=== PATIENT | female | born 1945 | race Asian ===

== ENCOUNTER 2020-02-20 18:18 | Emergency (ER) | payer SELFPAY ==
[~2020-02-20] VITALS: Ht 152.4 cm; Wt 59.0 kg
[2020-02-20 18:18] VITALS: BP_SYST 145
--- NOTE | 2020-02-20 18:18 | NUR ---
Patient triaged and placed in waiting room. VSS and patient appears in no acute distress at this time. Accompanied by DAUGHTER, awaiting available bed, and MD notified of need for MSE.
--- NOTE | 2020-02-20 18:51 | NUR ---
BROUGHT BACK TO BED#8 AND REPORT GIVEN TO EM
--- NOTE | 2020-02-20 18:56 | NUR ---
Pt brought to ER for ARRIAZA, fever, body aches x1 day after daughter who is caregiver tested positive for COVID. Pt is resting in gurney at this time, no distress noted, VSS
--- NOTE | 2020-02-20 19:11 | NUR ---
Received report from OTONIEL Russo.
--- NOTE | 2020-02-20 19:47 | NUR ---
ER at bedside examining patient.
[2020-02-20] MEDS ORDERED: ACETAMINOPHEN 500 MG TABLET PO ONE (20:00)
[2020-02-20] MEDS ORDERED: ONDANSETRON HCL 4 MG/2 ML VIAL IVP ONE (20:00)
[2020-02-20] MEDS ORDERED: NACL 0.9% 1,000 ML IV ONE (20:00)
[2020-02-20] MEDS ORDERED: KETOROLAC TROMETHAMINE 30 MG VIAL IVP ONE (20:00)
--- NOTE | 2020-02-20 20:08 | NUR ---
X-ray at bedside,
--- NOTE | 2020-02-20 20:25 | NUR ---
Covid-19 Rapid, PCR and Flu swabs and send to lab.
--- NOTE | 2020-02-20 20:30 | NUR ---
# 20 gauge angiocath placed to RAC. Use of asceptic technique. Opsite placed over site. Blood return noted. Blood for lab drawn from site. Flushed with 10 cc of normal saline. No evidence of infiltration noted. Patient tolerated well.
[2020-02-20 20:56] LABS: ANION GAP 10 (5-15); CALCIUM 8.5 mg/dL (8.4-11.0); CHLORIDE 96 mmol/L (98-107); CREATININE 0.59 mg/dL (0.55-1.30); GLUCOSE 128 mg/dL (70-99); POTASSIUM 3.5 mmol/L (3.5-5.1); SODIUM SERUM 130 mmol/L (136-145); UREA NITROGEN, BLOOD 14 mg/dL (8-21)
[2020-02-20 21:03] LABS: ALANINE AMINOTRANSFERASE 29 U/L (12-78); ALBUMIN 4.1 g/dL (3.4-4.8); ASPARTATE AMINOTRANSFERASE 22 U/L (10-37); BASOPHILS % (AUTO) 0.5 % (0.0-2.0); EOSINOPHILS % (AUTO) 0.1 % (0.0-4.0); HEMATOCRIT 42.7 % (36-48); HEMOGLOBIN 14.5 g/dL (12.0-16.0); LYMPHOCYTES # (AUTO) 0.4 K/uL (1.0-5.5); LYMPHOCYTES % (AUTO) 5.1 % (20.5-51.5); MEAN CORPUSCULAR HEMOGLOBIN 31 pg (27-31); MEAN CORPUSCULAR HGB CONC 34 % (32-36); MEAN CORPUSCULAR VOLUME 92 fL (79.0-98.0); MONOCYTES # (AUTO) 0.5 K/uL (0.0-1.0); MONOCYTES % (AUTO) 7.2 % (1.7-9.3); NEUTROPHILS # (AUTO) 6.3 K/uL (1.8-7.7); NEUTROPHILS % (AUTO) 87.1 % (40.0-70.0); PLATELET COUNT (AUTO) 179 K/uL (130-430); RED BLOOD CELL COUNT(AUTO) 4.65 MIL/uL (4.2-6.2); RED CELL DISTRIBUTION WIDTH 13.3 % (9.0-15.0); TOTAL BILIRUBIN 0.6 mg/dL (0.0-1.0); WHITE BLOOD COUNT (AUTO) 7.2 K/uL (4.8-10.8)
[2020-02-20 22:26] LABS: INFLUENZA A&B ANTIGEN SCREEN NEGATIVE FOR A & B (NEGATIVE)
[2020-02-20 22:51] VITALS: BP_SYST 118
--- NOTE | 2020-02-20 22:51 | NUR ---
Patient's family given written and verbal discharge instructions and verbalizes understanding. ER MD discussed with patient the results and treatment provided. Patient in stable condition. ID arm band removed. IV catheter removed intact and dressing applied, no active bleeding. Rx of Azithromycin given. Patient's family educated on pain management and to follow up with PMD. Pain Scale 1/10. Opportunity for questions provided and answered. Medication side effect fact sheet provided.
== END 2020-02-20 22:51 | disposition home or self-care (01) ==
LOC: SED 18:18
DX: R05 Cough (principal)
CPT/HCPCS: 36415; 71045; 80053; 85025; 86710; 87426; 96361; 96374; 96375; 99284; C9803; J1885; J2405; J7030; U0003

== ENCOUNTER 2020-02-25 11:36 | Inpatient (IN) | payer SELFPAY ==
[~2020-02-25] VITALS: Ht 152.4 cm; Wt 71.2 kg
[2020-02-25 11:41] VITALS: BP_SYST 118
--- NOTE | 2020-02-25 11:41 | NUR ---
Patient to ER bed 06 to gown for evaluation. Side rails up. Report given to OTONIEL STRICKLAND.
--- NOTE | 2020-02-25 11:50 | NUR ---
Pt brought to ER for COVID symptoms, pt daughter tested positive but pt tested negative 5 days ago. Chief complaint SOB and ARRIAZA, O2 sat WNL on RA, pt appears comfortable, VSS.
--- NOTE | 2020-02-25 11:55 | NUR ---
ER at bedside examining patient.
[2020-02-25 12:24] LABS: HEMATOCRIT 35.6 % (36-48); HEMOGLOBIN 12.5 g/dL (12.0-16.0); LYMPHOCYTES # (AUTO) 0.9 K/uL (1.0-5.5); LYMPHOCYTES % (AUTO) 23.8 % (20.5-51.5); MEAN CORPUSCULAR HEMOGLOBIN 32 pg (27-31); MEAN CORPUSCULAR HGB CONC 35 % (32-36); MEAN CORPUSCULAR VOLUME 91 fL (79.0-98.0); MONOCYTES # (AUTO) 0.4 K/uL (0.0-1.0); NEUTROPHILS # (AUTO) 2.5 K/uL (1.8-7.7); NEUTROPHILS % (AUTO) 65.2 % (40.0-70.0); PLATELET COUNT (AUTO) 168 K/uL (130-430); RED BLOOD CELL COUNT(AUTO) 3.92 MIL/uL (4.2-6.2); RED CELL DISTRIBUTION WIDTH 13.3 % (9.0-15.0); WHITE BLOOD COUNT (AUTO) 3.9 K/uL (4.8-10.8)
--- NOTE | 2020-02-25 12:33 | NUR ---
daughter left phone number [phone]
[2020-02-25 12:49] LABS: ANION GAP 9 (5-15); CALCIUM 7.6 mg/dL (8.4-11.0); CHLORIDE 100 mmol/L (98-107); CREATININE 0.59 mg/dL (0.55-1.30); GLUCOSE 116 mg/dL (70-99); SODIUM SERUM 134 mmol/L (136-145); UREA NITROGEN, BLOOD 15 mg/dL (8-21)
[2020-02-25 12:54] LABS: ALANINE AMINOTRANSFERASE 32 U/L (12-78); ALBUMIN 3.1 g/dL (3.4-4.8); ASPARTATE AMINOTRANSFERASE 28 U/L (10-37); LACTATE DEHYDROGENASE 156 U/L (81-234); TOTAL BILIRUBIN 0.3 mg/dL (0.0-1.0)
[2020-02-25 12:56] LABS: POTASSIUM 2.9 mmol/L (3.5-5.1)
[2020-02-25 13:09] LABS: PROTHROMBIN TIME 9.9 SECS (9.5-12.5)
[2020-02-25] MEDS ORDERED: POTASSIUM CHLORIDE 20 MEQ TAB.PRT.SR PO ONE (13:45)
[2020-02-25] MEDS ORDERED: IOHEXOL 350 mgI/mL, 150 ML INFUS..BTL IV ONE (14:31)
--- NOTE | 2020-02-25 14:38 | NUR ---
Pt resting in [place], VSS, no distress noted
[2020-02-25 15:21] LABS: BILIRUBIN,URINE NEGATIVE (NEGATIVE); CLARITY/URINE CLEAR (CLEAR); COLOR,URINE YELLOW (YELLOW); GLUCOSE,URINE NEGATIVE (NEGATIVE); KETONES,URINE NEGATIVE (NEGATIVE); LEUKOCYTE ESTERASE ,URINE NEGATIVE (NEGATIVE); NITRITE, URINE NEGATIVE (NEGATIVE); PROTEIN URINE NEGATIVE (NEGATIVE); UROBILINOGEN,URINE 0.2 (0.2-1.0)
[2020-02-25 15:39] LABS: BLOOD, URINE TRACE (NEGATIVE)
[2020-02-25] MEDS ORDERED: cefTRIAXone 1 GM IVPB PREMIX 50 ML IV ONE (15:45)
[2020-02-25 15:56] LABS: BACTERIA,URINE None Seen /HPF (None Seen); CALCIUM OXALATE CRYSTALS,UR None Seen /HPF (None Seen); CALCIUM PHOSPHATE CRYSTALS,UR None Seen /HPF (None Seen); RBC,URINE 0-3 /HPF (0-3); TRICHOMONAS,URINE None Seen /HPF (None Seen); URIC ACID CRYSTALS,URINE None Seen /HPF (None Seen); WBC,URINE NONE SEEN /HPF (0-3); YEAST,URINE None Seen /HPF (None Seen)
--- NOTE | 2020-02-25 17:33 | NUR ---
Pt asleep in [facility] at this time vss
[2020-02-25] MEDS ORDERED: LEVOFLOXACIN 500 MG/D5W 100 ML IV ONE (17:45)
--- NOTE | 2020-02-25 19:04 | NUR ---
ADMISSION NOTE Received patient from ER via gurney. Patient admitted with diagnosis of PNEUMONIA. Patient is awake, alert, oriented X 4. Patient oriented to hospital room, call light, toileting, pain management and safety-teach back done. Patient informed that TYLER will be nurse and that their room number is 123B. Personal belongings checked and Belongings List documented. Call light within reach.
--- NOTE | 2020-02-25 19:10 | NUR ---
Patient will be admitted to care of [facility]. Admitted to Tele unit. Will go to room 123B. Belongings list completed. Complete and up to date summary report printed. SBAR report to be given at bedside with opportunity for questions.
[2020-02-25 19:14] VITALS: BP_SYST 145
[2020-02-25] MEDS ORDERED: ALBUTEROL SULFATE 0.083% 2.5 MG/3 ML VIAL.NEB INH PRN (19:45)
[2020-02-25] MEDS ORDERED: IPRATROPIUM BROM 0.5 MG/2.5 ML VIAL.NEB (ATROVENT) INH PRN (19:45)
[2020-02-25 20:00] VITALS: BP_SYST 145
[2020-02-25] MEDS ORDERED: FLU VACC QS2020-21(65UP)/PF 0.7 ML/SYRINGE I.M. PRN (20:15)
[2020-02-25 20:54] VITALS: BP_SYST 145
--- NOTE | 2020-02-25 21:20 | NUR ---
RN NOTE: PT RESTING IN BED, NO S/S OF ACUTE DISTRESS, BREATHING IS EVEN AND UNLABORED TO ROOM AIR, OXYGEN SATURATION IS 93% ON THE TELE MONITOR. SAFETY MAINTAINED. WILL MONITOR.
[2020-02-26] MEDS ORDERED: HYDROcodone/ACETAMIN 10-325 MG TAB PO PRN
[2020-02-26] MEDS ORDERED: HYDROcodone/ACETAMIN 5-325 MG TAB (NORCO/ VICODIN) PO PRN
[2020-02-26] MEDS ORDERED: LORazepam 2 MG/ML VIAL IVP PRN
[2020-02-26] MEDS ORDERED: NALOXONE HCL 0.4 MG/ML AMP (NARCAN) IVP PRN ×2
[2020-02-26] MEDS ORDERED: ONDANSETRON HCL 4 MG/2 ML VIAL IVP PRN
[2020-02-26 00:11] VITALS: BP_SYST 128
--- NOTE | 2020-02-26 00:18 | NUR ---
VITALS VITAL SIGNS WNL. NO S/S OF ACUTE DISTRESS. PT GIVEN WARM WATER. SAFETY MAINTAINED. WILL MONITOR.
[2020-02-26] MEDS: ALBUTEROL SULFATE 0.083% 2.5 MG/3 ML VIAL.NEB INH SCH ×3 (01:00→19:52)
[2020-02-26] MEDS: IPRATROPIUM BROM 0.5 MG/2.5 ML VIAL.NEB (ATROVENT) INH SCH ×3 (01:00→19:51)
--- NOTE | 2020-02-26 02:12 | NUR ---
RN NOTE: PT RESTING IN BED, NO S/S OF ACUTE DISTRESS, BREATHING IS EVEN AND UNLABORED TO ROOM AIR, OXYGEN SATURATION IS 91% ON THE TELE MONITOR. SAFETY MAINTAINED. WILL MONITOR.
[2020-02-26] MEDS: NORMAL SALINE 5 ML DISP.SYRIN IVF SCH ×3 (05:09→20:30)
--- NOTE | 2020-02-26 05:29 | NUR ---
COVID PCR TAKEN AND SENT TO LAB. PT TOLERATED WELL.
--- NOTE | 2020-02-26 06:22 | NUR ---
CLOSING NOTE PATIENT RESTING IN BED, NO S/S OF ACUTE DISTRESS NOTED. BREATHING EVEN AND UNLABORED TO ROOM AIR, SATTING 93% ON THE TELE MONITOR. IV SITE IS PATENT, NO SIGNS OF INFILTRATION OR INFECTION NOTED. SKIN WARM AND DRY TO TOUCH. NO ALL NEEDS MET THROUGHOUT SHIFT. FALL, SAFETY, AND ISOLATION PRECAUTIONS MAINTAINED THROUGHOUT SHIFT. WILL CONTINUE TO MONITOR UNTIL PATIENT CARE IS ENDORSED TO ONCOMING DAYSHIFT NURSE.
[2020-02-26 08:00] VITALS: BP_SYST 158
--- NOTE | 2020-02-26 08:00 | NUR ---
initial notes rec patient awake alert and eating breakfast ivl on the l wrist in place. no infiltration noted.ambulates in the room and smita well. resp easy and unlabored. no sob noted. bed to the lowest position. call light within reached. will continue to monitor patient.
[2020-02-26] MEDS: cefTRIAXone 1 GM in D5W 50 ML IV SCH (09:00)
[2020-02-26] MEDS: AZITHROMYCIN 500 MG in NS 250 ML IV SCH (09:49)
--- NOTE | 2020-02-26 10:00 | NUR ---
rounds due meds were given and smita well. resting comfortably.
[2020-02-26 12:00] VITALS: BP_SYST 145
--- NOTE | 2020-02-26 12:18 | NUR ---
CONSULTATION: REASON FOR CONSULT: RULE OUT COVID CONSULTING PHYSICIAN: LEEANN RENNER ORDERED BY: DANILO SPOKE WITH HANSEL [phone]
--- NOTE | 2020-02-26 14:00 | NUR ---
rounds seen by dr arzate. denies pain. sleeps at intervals. call light within reached. no sob noted.
[2020-02-26] MEDS ORDERED: ASCORBIC ACID 500 MG TABLET PO ONE (14:30)
[2020-02-26] MEDS ORDERED: CHOLECALCIFEROL (VITAMIN D3) 2,000 UNIT TABLET PO ONE (14:30)
[2020-02-26 16:00] VITALS: BP_SYST 141
--- NOTE | 2020-02-26 19:00 | NUR ---
closing notes pt resting comfortably. no sob noted. call light within reached. bed to the lowest position and side rails up and locked.
--- NOTE | 2020-02-26 19:30 | NUR ---
OPENING NOTES RECEIVED REPORT FROM DAY SHIFT RN. PT RESTING IN BED, ALERT & ORIENTED X4. BREATHING EVEN AND UNLABORED TO ROOM AIR. NO S/S OF RESPIRATORY DISTRESS NOTED. LEFT WRIST 20G INTACT, NO SIGNS OF INFILTRATION NOTED. CALL LIGHT WITHIN REACH. BED LOCKED IN LOWEST POSITION. SIDE RAILS UP X3. SAFETY AND ISOLATION PRECAUTIONS MAINTAINED. WILL CONTINUE TO MONITOR.
[2020-02-26 20:08] VITALS: BP_SYST 122
[2020-02-26] MEDS: ACETAMINOPHEN 325 MG TABLET PO PRN (20:08)
--- NOTE | 2020-02-26 20:08 | NUR ---
FEVER 100.5 TEMPERATURE NOTED. ADMINISTERED TYLENOL ORDERED PRN. PT SWALLOWED MEDICATIONS WITHOUT ANY DIFFICULTY. WILL RECHECK THE TEMPERATURE AGAIN.
--- NOTE | 2020-02-26 21:25 | NUR ---
TEMPERATURE RECHECKED TEMPERATURE, 99.2 NOTED AT THIS TIME. PT THOM ANY PAIN. BREATHING EVEN AND UNLABORED TO ROOM AIR. NO SIGNS OF RESPIRATORY DISTRESS NOTED. PT WALKED TO THE BATHROOM, STEADY GAIT NOTED. PT BACK TO BED SAFELY. CALL LIGHT WITHIN REACH. SIDE RAILS UP X3. BED LOCKED IN LOWEST POSITION. SAFETY AND ISOLATION PRECAUTIONS ARE IN PLACE. WILL CONTINUE TO MONITOR.
--- NOTE | 2020-02-26 23:55 | NUR ---
RN ROUNDS PT RESTING IN BED, BREATHING EVEN AND UNLABORED TO ROOM AIR. NO SIGNS OF RESPIRATORY DISTRESS NOTED. O2 SAT 93%. CALL LIGHT WITHIN REACH. BED LOCKED IN LOWEST POSITION. SAFETY AND ISOLATION PRECAUTIONS MAINTAINED. WILL MONITOR.
[2020-02-27] VITALS: BP_SYST 113
[2020-02-27] MEDS: ALBUTEROL SULFATE 0.083% 2.5 MG/3 ML VIAL.NEB INH SCH ×3 (01:01→13:25)
[2020-02-27] MEDS: IPRATROPIUM BROM 0.5 MG/2.5 ML VIAL.NEB (ATROVENT) INH SCH ×3 (01:01→13:25)
--- NOTE | 2020-02-27 03:15 | NUR ---
RN ROUNDS PT SLEEPING. BREATHING EVEN AND UNLABORED TO ROOM AIR. PT THOM ANY PAIN AT THIS TIME. CALL LIGHT WITHIN REACH. BED LOCKED IN LOWEST POSITION. SIDE RAILS UP X3. SAFETY PRECAUTIONS MAINTAINED. WILL CONTINUE TO MONITOR.
[2020-02-27] MEDS: NORMAL SALINE 5 ML DISP.SYRIN IVF SCH ×2 (05:30→13:26)
--- NOTE | 2020-02-27 06:54 | NUR ---
CLOSING NOTES PT RESTING IN BED. BREATHING EVEN AND UNLABORED TO ROOM AIR. NO S/S OF RESPIRATORY DISTRESS NOTED. LEFT WRIST 20G INTACT, NO SIGNS OF INFILTRATION NOTED. CALL LIGHT WITHIN REACH. BED LOCKED IN LOWEST POSITION. SIDE RAILS UP X3. SAFETY AND ISOLATION PRECAUTIONS MAINTAINED. ALL NEEDS ARE MET THROUGHOUT SHIFT RN. WILL CONTINUE TO MONITOR UNTIL ENDORSE TO DAY SHIFT RN.
--- NOTE | 2020-02-27 07:30 | NUR ---
OPENING NOTES: RECEIVED PATIENT FROM STATISTICS TUTOR NURSE. PATIENT IS AWAKE AND ALERT x4 LAYING DOWN IN BED. PATIENT DENIES ANY PAIN AT THE MOMENT. IV SITE IS PATENT WITH NO SIGNS OF INFILTRATION NOTED. PATIENT IN STABLE CONDITION. SAFETY, FALL, ASPIRATION, CONTACT AND DROPLET PRECAUTIONS ARE IN PLACE. BED LOCKED IN LOWEST POSITION WITH CALL LIGHT IN REACH. WILL CONTINUE TO MONITOR PATIENT FOR ANY CHANGES.
[2020-02-27 07:31] LABS: BASOPHILS % (AUTO) 0.6 % (0.0-2.0); EOSINOPHILS % (AUTO) 0.1 % (0.0-4.0); HEMATOCRIT 39.6 % (36-48); HEMOGLOBIN 13.6 g/dL (12.0-16.0); LYMPHOCYTES # (AUTO) 0.7 K/uL (1.0-5.5); LYMPHOCYTES % (AUTO) 18.7 % (20.5-51.5); MEAN CORPUSCULAR HEMOGLOBIN 31 pg (27-31); MEAN CORPUSCULAR HGB CONC 35 % (32-36); MEAN CORPUSCULAR VOLUME 90 fL (79.0-98.0); MONOCYTES # (AUTO) 0.2 K/uL (0.0-1.0); MONOCYTES % (AUTO) 6.9 % (1.7-9.3); NEUTROPHILS # (AUTO) 2.7 K/uL (1.8-7.7); NEUTROPHILS % (AUTO) 73.7 % (40.0-70.0); PLATELET COUNT (AUTO) 173 K/uL (130-430); RED CELL DISTRIBUTION WIDTH 13.2 % (9.0-15.0); WHITE BLOOD COUNT (AUTO) 3.6 K/uL (4.8-10.8)
[2020-02-27 07:53] LABS: ANION GAP 11 (5-15); CALCIUM 7.9 mg/dL (8.4-11.0); CHLORIDE 99 mmol/L (98-107); CREATININE 0.53 mg/dL (0.55-1.30); GLUCOSE 101 mg/dL (70-99); SODIUM SERUM 136 mmol/L (136-145); UREA NITROGEN, BLOOD 9 mg/dL (8-21)
[2020-02-27] MEDS: ASCORBIC ACID 500 MG TABLET PO SCH (08:40)
[2020-02-27] MEDS: CHOLECALCIFEROL (VITAMIN D3) 2,000 UNIT TABLET PO SCH (08:40)
[2020-02-27] MEDS: cefTRIAXone 1 GM in D5W 50 ML IV SCH (08:40)
--- NOTE | 2020-02-27 08:40 | NUR ---
SCD's: PATIENT REFUSED TO LET ME PUT ON SCD's. WILL TRY AGAIN AT A LATER TIME.
[2020-02-27 08:41] VITALS: BP_SYST 121
[2020-02-27 08:41] LABS: C-REACTIVE PROTEIN QUANT 1.7 mg/dL (0-0.5)
--- NOTE | 2020-02-27 08:42 | NUR ---
MEDS: MORNING MEDICATIONS GIVEN TO PATIENT. PATIENT TOLERATED THEM WELL. WILL CONTINUE TO MONITOR PATIENT.
[2020-02-27] MEDS: AZITHROMYCIN 500 MG in NS 250 ML IV SCH (09:20)
--- NOTE | 2020-02-27 09:45 | NUR ---
IV: PATIENT COMPLAINED OF LEFT WRIST IV SITE BURNING. IV SITE REMOVED WITH CATHETER INTACT AND NO ACTIVE BLEEDING. NEW IV SITE INSERTED INTO THE RIGHT HAND 22G. ASEPTIC TECHNIQUE USED. SUCCESSFUL AFTER ONE ATTEMPT. IV SITE FLUSHED WITH NORMAL SALINE AND NO SIGNS OF INFILTRATION NOTED. PATIENT TOLERATED IT WELL. WILL CONTINUE TO MONITOR.
--- NOTE | 2020-02-27 10:03 | NUR ---
RN ROUNDS: PATIENT IS AWAKE AND ALERT x4 LAYING DOWN IN BED. PATIENT IS TOLERATING OXYGEN ON ROOM AIR WITH NO SIGNS OF DISTRESS OR SHORTNESS OF BREATH NOTED. IV SITE IS PATENT WITH NO SIGNS OF INFILTRATION NOTED. PATIENT IN STABLE CONDITION. WILL CONTINUE TO MONITOR PATIENT FOR ANY CHANGES.
--- NOTE | 2020-02-27 10:34 | NUR ---
FAMILY: DAUGHTER KUSHAL CALLED TO GET AN UPDATE ON HER MOTHER. I INFORMED HER HOW SHE IS DOING AND THAT WE WILL LET HER KNOW WHEN HER MOTHER WILL BE READY FOR DISCHARGE. UNSURE IF KUSHAL UNDERSTOOD ME. SHE DID NOT RESPOND TO ME. CALLED BACK A SECOND TIME TO TRY AND MAKE SURE SHE UNDERSTOOD AND ALL SHE KEPT SAYING WAS "HELLO". WILL TRY TO COMMUNICATE WITH HER AGAIN.
--- NOTE | 2020-02-27 11:18 | NUR ---
PAGED PAGED ABRAHAM SOLARES AT [phone] SPOKE WITH KENIA.
[2020-02-27] MEDS: ACETAMINOPHEN 325 MG TABLET PO PRN (12:12)
--- NOTE | 2020-02-27 12:12 | NUR ---
FEVER: PATIENT HAS A TEMPERATURE OF 99.9. TYLENOL GIVEN TO PATIENT. PATIENT SWALLOWED WITH NO ISSUES. WILL REASSESS PATIENT.
[2020-02-27 12:18] VITALS: BP_SYST 135
--- NOTE | 2020-02-27 12:23 | NUR ---
RN ROUNDS: PATIENT IS AWAKE AND ALERT x4 LAYING DOWN IN BED. PATIENT IS TOLERATING OXYGEN ON ROOM AIR WITH NO SIGNS OF DISTRESS OR SHORTNESS OF BREATH NOTED. IV SITE IS PATENT WITH NO SIGNS OF INFILTRATION NOTED. LUNCH TRAY PROVIDED TO PATIENT. PATIENT GOT UP TO THE SIDE OF THE BED TO EAT. PATIENT IN STABLE CONDITION. WILL CONTINUE TO MONITOR PATIENT FOR ANY CHANGES.
[2020-02-27] MEDS ORDERED: POTASSIUM CHLORIDE 20 MEQ TAB.PRT.SR PO ONE (13:15)
--- NOTE | 2020-02-27 13:15 | NUR ---
HIGH ALERT NOTE: Called Dr. Barton back at [phone] identified within the medical roster to verify physician authenticity.
--- NOTE | 2020-02-27 14:06 | NUR ---
RN ROUNDS: PATIENT IS ASLEEP LAYING DOWN IN BED. PATIENT IS TOLERATING OXYGEN ON ROOM AIR WITH NO SIGNS OF DISTRESS OR SHORTNESS OF BREATH NOTED. IV SITE IS PATENT WITH NO SIGNS OF INFILTRATION NOTED. PATIENT IN STABLE CONDITION. WILL CONTINUE TO MONITOR PATIENT FOR ANY CHANGES.
[2020-02-27 16:10] VITALS: BP_SYST 137
--- NOTE | 2020-02-27 16:36 | NUR ---
RN ROUNDS: PATIENT IS AWAKE AND ALERT x4 LAYING DOWN IN BED TALKING ON THE PHONE. PATIENT IS TOLERATING OXYGEN ON ROOM AIR WITH NO SIGNS OF DISTRESS OR SHORTNESS OF BREATH NOTED. IV SITE IS PATENT WITH NO SIGNS OF INFILTRATION NOTED. PATIENT IN STABLE CONDITION. WILL CONTINUE TO MONITOR PATIENT FOR ANY CHANGES.
--- NOTE | 2020-02-27 17:22 | NUR ---
PAGED PAGED LEEANN PATEL AT [phone] SPOKE WITH HUSSAIN.
--- NOTE | 2020-02-27 18:37 | NUR ---
CLOSING NOTES: PATIENT IS AWAKE AND ALERT x4 LAYING DOWN IN BED ON HER PHONE. PATIENT DENIES ANY PAIN AT THE MOMENT. IV SITE IS PATENT WITH NO SIGNS OF INFILTRATION NOTED. PATIENT IN STABLE CONDITION. SAFETY, FALL, ASPIRATION, CONTACT AND DROPLET PRECAUTIONS REMAINED IN PLACE THROUGHOUT THE SHIFT. BED LOCKED IN LOWEST POSITION WITH CALL LIGHT IN REACH. WILL ENDORSE PATIENT CARE TO ONCOMING MIDDLEWARE ADMINISTRATOR NURSE.
[2020-02-28] MEDS: NORMAL SALINE 5 ML DISP.SYRIN IVF SCH ×4 (06:00→21:34)
[2020-02-28] MEDS: ALBUTEROL SULFATE 0.083% 2.5 MG/3 ML VIAL.NEB INH SCH (07:18)
[2020-02-28] MEDS: IPRATROPIUM BROM 0.5 MG/2.5 ML VIAL.NEB (ATROVENT) INH SCH (07:18)
[2020-02-28 08:00] VITALS: BP_SYST 126
--- NOTE | 2020-02-28 08:00 | NUR ---
Initial notes awake, oriented. speaks mandarin, patient's uses translation on her phone to communicate. temp is 99.1, denies any pain or discomfort at this time. No distress noted, On room air, but patient O2 sat is at 88-89% at this time. Nasal cannula at 2L applied at this time. ambulate with steady gait. Enc. to call for help as needed. Call light in reach.Will continue to monitor.
[2020-02-28] MEDS: ASCORBIC ACID 500 MG TABLET PO SCH (08:09)
[2020-02-28] MEDS: cefTRIAXone 1 GM in D5W 50 ML IV SCH (08:09)
[2020-02-28] MEDS: CHOLECALCIFEROL (VITAMIN D3) 2,000 UNIT TABLET PO SCH (08:09)
[2020-02-28] MEDS: AZITHROMYCIN 500 MG in NS 250 ML IV SCH (09:26)
--- NOTE | 2020-02-28 11:00 | NUR ---
Notes Resting in bed, no distress noted. Enc to call for help as needed. Will monitor.
[2020-02-28 12:00] VITALS: BP_SYST 120
[2020-02-28] MEDS: DECADRON 4 MG TABLET PO SCH (13:10)
--- NOTE | 2020-02-28 15:22 | NUR ---
Notes Resting with eyes closed. No distress noted. On O2 2L tolerating well. Will monitor.
[2020-02-28 16:37] VITALS: BP_SYST 115
--- NOTE | 2020-02-28 18:19 | NUR ---
Notes- Ambulating in the room, o2 sat on the monitor is 92%. Denies any chest pain or discomfort. will monitor.
[2020-02-28] MEDS: ALBUTEROL MDI INHALATION 8 GM INH INH SCH (19:00)
--- NOTE | 2020-02-28 19:35 | NUR ---
ROUNDS PATIENT RESTING COMFORTABLY IN BED, NOT IN DISTRESS, VITALS STABLE. NO PAIN AND DISCOMFORT AT THIS TIME. ASSESSMENT DONE AND DOCUMENTED. SEE FLOWSHEET. NEEDS ATTENDED TO. SAFETY AND FALL MEASURES IN PLACED. BED IN LOW AND LOCKED POSITION. CALL LIGHT PLACED WITHIN REACH.
[2020-02-28 20:00] VITALS: BP_SYST 118
--- NOTE | 2020-02-28 22:13 | NUR ---
ROUNDS PATIENT RESTING COMFORTABLY IN BED, NO SIGNS OF ANY PAIN AND DISCOMFORT NOTED, WILL CONTINUE TO MONITOR.
[2020-02-29] VITALS: BP_SYST 120
--- NOTE | 2020-02-29 00:12 | NUR ---
PATIENT RESTING: Patient resting quietly. No acute distress noted. Vital signs within normal range.
[2020-02-29] MEDS: ALBUTEROL MDI INHALATION 8 GM INH INH SCH ×4 (01:13→18:00)
--- NOTE | 2020-02-29 02:13 | NUR ---
ROUNDS PATIENT ASLEEP, RESPIRATIONS EVEN AND UNLABORED, NO PAIN AND DISCOMFORT NOTED. WILL CONTINUE TO MONITOR.
--- NOTE | 2020-02-29 04:17 | NUR ---
PATIENT RESTING: Patient resting quietly. No acute distress noted. Vital signs within normal range.
[2020-02-29 08:00] VITALS: BP_SYST 127
[2020-02-29] MEDS: cefTRIAXone 1 GM in D5W 50 ML IV SCH (09:08)
[2020-02-29] MEDS: CHOLECALCIFEROL (VITAMIN D3) 2,000 UNIT TABLET PO SCH (09:08)
[2020-02-29] MEDS: ASCORBIC ACID 500 MG TABLET PO SCH (09:08)
--- NOTE | 2020-02-29 09:10 | NUR ---
Notes Awake, Afebrile, on room air o2 sat at 92%. ambulates, no acute distress noted. Eat all her breakfast.
[2020-02-29] MEDS: AZITHROMYCIN 500 MG in NS 250 ML IV SCH (10:33)
[2020-02-29 12:00] VITALS: BP_SYST 115
--- NOTE | 2020-02-29 12:18 | NUR ---
CONSULTATION PAGED/CALLED Reason for Consultation: [] COVID Person Who was Notified: [] PAGED PULMO SWIFT TENDER DIRECTLY (DR CLEARY) Consulting Physician: [] DR CLEARY Aluminum Boat Inspector Specialty: [] PULMO Ordering Physician: [] DR CARRASCO
--- NOTE | 2020-02-29 12:41 | NUR ---
SS notes: FIRE PRODUCTION OPERATOR phoned selenar Simranjacky Figueroa @ [phone] to offer resources. FIRE PRODUCTION OPERATOR provided family with community clinic and Rx discount card. FIRE PRODUCTION OPERATOR encouraged family to call SS if additional resources needed. Resources mailed to: [address], [place] [address] address. SS will remain available.
[2020-02-29] MEDS: DECADRON 4 MG TABLET PO SCH (13:00)
--- NOTE | 2020-02-29 14:30 | NUR ---
Notes resting , on room air, tolerating so far. no distress noted.
[2020-02-29 16:00] VITALS: BP_SYST 112
--- NOTE | 2020-02-29 18:17 | NUR ---
Notes- Eating dinner, in no distress , On room air tolerating well. Denies any shortness of breath or chest pain.
--- NOTE | 2020-02-29 18:18 | NUR ---
MD Rounds Seen by Dr. Zora MD cleared patient to go home.
--- NOTE | 2020-02-29 19:30 | NUR ---
Initial notes: Received report from dayshift RN. Patient is in bed, resting. No acute distress. Even, nonlabored breathing on room air. IV site is patent, intact, and saline locked. Bed is locked at lowest position. Side rails up x2. Call light is with patient. Covid, safety, and fall precautions in place. Will continue with plan of care.
[2020-02-29 20:00] VITALS: BP_SYST 126
[2020-02-29] MEDS: NORMAL SALINE 5 ML DISP.SYRIN IVF SCH ×2 (21:30→22:02)
--- NOTE | 2020-02-29 21:30 | NUR ---
Rounds: Patient is resting in bed. No s/s of acute distress. Breathing is even, nonlabored on room air. Call light is with patient. Covid, safety, and fall precautions in place. Will continue monitoring.
--- NOTE | 2020-02-29 23:30 | NUR ---
Rounds: Patient is in bed, sleeping. No s/s of acute distress. Respirations are even and nonlabored. Call light is with patient. Covid, safety, and fall precautions in place. Will continue monitoring.
[2020-03-01] VITALS: BP_SYST 116
--- NOTE | 2020-03-01 01:33 | NUR ---
Rounds: Patient is sleeping in bed. Showing no signs of acute distress. Even and unlabored breathing. Call light is with patient. Covid, safety, and fall precautions in place. Will continue to monitor.
--- NOTE | 2020-03-01 04:00 | NUR ---
Rounds: Patient is sleeping in bed. No signs of acute distress. Breathing is even and unlabored. Call light is with patient. Safety and fall precautions in place. Will continue monitoring.
[2020-03-01] MEDS: NORMAL SALINE 5 ML DISP.SYRIN IVF SCH ×3 (05:45→21:01)
--- NOTE | 2020-03-01 06:48 | NUR ---
Closing notes: Patient is in bed, resting. No acute distress. Even, nonlabored breathing on room air. IV site is patent, intact, and saline locked. All needs met. Bed is locked at lowest position. Side rails up x2. Call light is with patient. Covid, safety, and fall precautions in place. Will endorse care to dayshift RN.
[2020-03-01] MEDS: ALBUTEROL MDI INHALATION 8 GM INH INH SCH ×4 (07:35→19:50)
[2020-03-01 08:20] VITALS: BP_SYST 123
[2020-03-01] MEDS: cefTRIAXone 1 GM in D5W 50 ML IV SCH (09:01)
[2020-03-01] MEDS: CHOLECALCIFEROL (VITAMIN D3) 2,000 UNIT TABLET PO SCH (09:01)
[2020-03-01] MEDS: ASCORBIC ACID 500 MG TABLET PO SCH (09:01)
--- NOTE | 2020-03-01 09:45 | NUR ---
DR CARRASCO WAS HERE, INFORMED MD THAT PT IS DOING FINE THOUGH HER O2 SAT IS AT 92% ON ROOM AIR.
[2020-03-01] MEDS: AZITHROMYCIN 500 MG in NS 250 ML IV SCH (10:00)
[2020-03-01 12:48] VITALS: BP_SYST 131
[2020-03-01] MEDS: DECADRON 4 MG TABLET PO SCH (12:53)
--- NOTE | 2020-03-01 16:05 | NUR ---
PT HAS TEMP OF 100.3, WILL CONT TO MONITOR PT.
[2020-03-01 16:06] VITALS: BP_SYST 125
[2020-03-01 20:45] VITALS: BP_SYST 124
--- NOTE | 2020-03-01 20:45 | NUR ---
Opening notes Pt asleep, easily awakens. VSS, afebrile, O2 sat 94% on room air. IV saline locked R. hand 22G clear and patent. Call light/items within reach. Bed low, locked, siderails up x2. Droplet isolation maintained. To monitor.
[2020-03-02 00:10] VITALS: BP_SYST 106
--- NOTE | 2020-03-02 00:10 | NUR ---
Rounds Pt asleep, no s/s distress noted. VSS, afebrile. Call light within reach. To monitor.
[2020-03-02] MEDS: ALBUTEROL MDI INHALATION 8 GM INH INH SCH ×4 (01:30→19:08)
--- NOTE | 2020-03-02 02:29 | NUR ---
Rounds Pt asleep, no s/s distress noted. Call light within reach. Bed low, locked, siderails up x2. Covid isolation maintained. To monitor.
--- NOTE | 2020-03-02 04:40 | NUR ---
Rounds Pt asleep, no s/s distress noted. Call light within reach. Bed low, locked, siderails up x2. Covid isolation maintained. To monitor.
[2020-03-02] MEDS: NORMAL SALINE 5 ML DISP.SYRIN IVF SCH ×3 (06:20→22:00)
--- NOTE | 2020-03-02 06:30 | NUR ---
Closing notes Pt alert, awake, no s/s distress noted. Pt ambulates to the bathroom, no s/s sob noted. IV saline locked R. hand 22G clear and patent. Call light/items within reach. Bed low, locked, siderails up x2. Droplet isolation maintained. To endorse to AM nurse.
--- NOTE | 2020-03-02 08:00 | NUR ---
OPENING NOTES, RECEIVED PT IN BED, PT IS AAO, DIVEHI SPEAKING, PT COMMUNICATE WITH CELLPHONE ANN-MARIE MD UROLOGIST. PT HAS TEMP OF 101. PT C/O OF WARM ROOM TEMP, REQUESTED UNIT SECT TO HAVE THE ROOM TEMP ADJUSTED. WILL CONT TO MONITOR.
[2020-03-02 08:15] VITALS: BP_SYST 146
[2020-03-02] MEDS: cefTRIAXone 1 GM in D5W 50 ML IV SCH (09:11)
[2020-03-02] MEDS: CHOLECALCIFEROL (VITAMIN D3) 2,000 UNIT TABLET PO SCH (09:11)
[2020-03-02] MEDS: ASCORBIC ACID 500 MG TABLET PO SCH (09:11)
[2020-03-02 10:30] VITALS: BP_SYST 146
[2020-03-02] MEDS: DECADRON 4 MG TABLET PO SCH (12:28)
[2020-03-02] MEDS: ACETAMINOPHEN 325 MG TABLET PO PRN (12:29)
--- NOTE | 2020-03-02 12:30 | NUR ---
PT GIVEN TYLENOL FOR TEMP OF 100.3 AND HEADACHE. WILL CONT TO MONITOR PT.
--- NOTE | 2020-03-02 14:00 | NUR ---
OTONIEL MONTALVO ASSISTED WITH TRANSLATION TO CHECK HOW PATIENT FEEL AT THIS TIME.
[2020-03-02 15:54] VITALS: BP_SYST 110
--- NOTE | 2020-03-02 16:00 | NUR ---
PT HAS NO FEVER AT THIS TIME. PT RESTING IN BED. WILL CONT TO MONITOR.
--- NOTE | 2020-03-02 18:35 | NUR ---
CLOSING NOTES, PT HAD FEVER THIS MORNING TILL THIS PM, PT NOTED ALSO DESATING ON ROOM AIR. PT WAS PLACED ON O2 3L NC AND GIVEN TYLENOL. PT FEVER RESOLVED THIS PM. PT HAS NO C/O OF PAIN, WILL ENDORSE TO NIGHT NURSE.
[2020-03-02 20:45] VITALS: BP_SYST 107
--- NOTE | 2020-03-02 20:45 | NUR ---
Opening notes Pt resting in bed no s/s distress noted. VSS, temp 97.2 O2 sat 94% on 3L. IV saline lock R. hand 22G clear and patent. Encouraged pt to use incentive spirometer at the bedside. Call light within reach. BEd low, locked siderails up x2. To monitor.
--- NOTE | 2020-03-02 23:50 | NUR ---
Rounds Pt asleep, easily awakens no s/s respiratory distress. VSS, afebrile. Call light within reach. Bed low, locked, siderails up x. Covid isolation maintained. To monitor.
[2020-03-03] VITALS: BP_SYST 105
[2020-03-03] MEDS: ALBUTEROL MDI INHALATION 8 GM INH INH SCH ×4 (01:14→19:25)
--- NOTE | 2020-03-03 03:50 | NUR ---
Rounds Pt asleep, no s/s respiratory distress. Call light within reach. Bed low, locked, siderails up x2 . Covid isolation maintained. To monitor.
--- NOTE | 2020-03-03 05:55 | NUR ---
Portable CXR at bedside.
--- NOTE | 2020-03-03 06:30 | NUR ---
Closing notes Pt alert, awake, no s/s respiratory distress. No fever during the shift. IV pulled out R. hand, catheter tip intact. Attempted to restart x2, unable. Call light within reach. Bed low, locked, siderails up x2. Covid isolation maintained. To endorse to AM nurse.
[2020-03-03 06:59] LABS: BASOPHILS # (AUTO) 0.1 K/uL (0.0-0.2); BASOPHILS % (AUTO) 0.4 % (0.0-2.0); HEMATOCRIT 41.4 % (36-48); HEMOGLOBIN 14.2 g/dL (12.0-16.0); LYMPHOCYTES # (AUTO) 0.6 K/uL (1.0-5.5); LYMPHOCYTES % (AUTO) 3.5 % (20.5-51.5); MEAN CORPUSCULAR HEMOGLOBIN 31 pg (27-31); MEAN CORPUSCULAR HGB CONC 34 % (32-36); MEAN CORPUSCULAR VOLUME 90 fL (79.0-98.0); MONOCYTES # (AUTO) 0.3 K/uL (0.0-1.0); MONOCYTES % (AUTO) 2.2 % (1.7-9.3); NEUTROPHILS # (AUTO) 14.6 K/uL (1.8-7.7); NEUTROPHILS % (AUTO) 93.9 % (40.0-70.0); PLATELET COUNT (AUTO) 277 K/uL (130-430); RED CELL DISTRIBUTION WIDTH 13.4 % (9.0-15.0); WHITE BLOOD COUNT (AUTO) 15.6 K/uL (4.8-10.8)
[2020-03-03 07:25] LABS: ALANINE AMINOTRANSFERASE 58 U/L (12-78); ANION GAP 10 (5-15); ASPARTATE AMINOTRANSFERASE 30 U/L (10-37); CALCIUM 8.6 mg/dL (8.4-11.0); CHLORIDE 97 mmol/L (98-107); CREATININE 0.73 mg/dL (0.55-1.30); GLUCOSE 114 mg/dL (70-99); POTASSIUM 3.4 mmol/L (3.5-5.1); SODIUM SERUM 132 mmol/L (136-145); TOTAL BILIRUBIN 0.5 mg/dL (0.0-1.0); UREA NITROGEN, BLOOD 18 mg/dL (8-21)
--- NOTE | 2020-03-03 07:38 | NUR ---
OPENING NOTE Patient resting in the bed. No acute distress. AAO x 4. Skin warm and dry to touch. No IV access at this time. Discussed the safety issue, use call light when needs help, and plan of care, verbally understanding. Patient speaks Mandarin and I am speak Mandarin. On isolation. Safety measure maintained. Call light within reached. Bed locked in low position, side rails up, bed alarm on. Will continue to monitor.
[2020-03-03 07:40] VITALS: BP_SYST 125
[2020-03-03] MEDS: CHOLECALCIFEROL (VITAMIN D3) 2,000 UNIT TABLET PO SCH (09:07)
[2020-03-03] MEDS: ASCORBIC ACID 500 MG TABLET PO SCH (09:07)
--- NOTE | 2020-03-03 09:07 | NUR ---
AM PO SCHEDULE MED GIVEN. PATIENT TOLERATED WELL.
--- NOTE | 2020-03-03 09:23 | NUR ---
SEEN AND EXAMINED BY ZABRINA POOL.
[2020-03-03] MEDS ORDERED: ENOXAPARIN SODIUM 40 MG/0.4 ML SYRINGE SUBCUT ONE (10:00)
[2020-03-03] MEDS: cefTRIAXone 1 GM in D5W 50 ML IV SCH (10:00)
--- NOTE | 2020-03-03 10:00 | NUR ---
IV INSERTION Started on RFA. Successful after 2 attempts. Qiana bateman. Will observe for any signs of infiltration.
--- NOTE | 2020-03-03 10:05 | NUR ---
SEEN BY ABRAHAM CINTRON. REPORTED TO DR. CARRASCO, PATIENT'S WBC=15.6 AND K=3.4.
--- NOTE | 2020-03-03 11:05 | NUR ---
INCENTIVE SPIROMETER Instructed and encouraged to use incentive spirometer, verbally understanding. Able to demonstrate back with 800ml. Safety measure maintained. Call light within reached. Isolation maintained. Continue to monitor.
[2020-03-03 12:00] VITALS: BP_SYST 127
--- NOTE | 2020-03-03 13:05 | NUR ---
PRONE POSITION Instructed the patient for prone position when asleep, verbally understanding. Able to demonstrate back. Safety measure maintained. Call light within reached. Isolation maintained. Continue to monitor.
--- NOTE | 2020-03-03 14:03 | NUR ---
Dietitian Recommendations *Continue regular diet as ordered. *Continue immune boosters. *Encourage PO intake. *Monitor BG. Consider CCHO diet if BG continues to trend up. Please see Nutritional Assessment for details. SHAILA, ELSIE
[2020-03-03] MEDS: NORMAL SALINE 5 ML DISP.SYRIN IVF SCH ×2 (14:08→21:02)
[2020-03-03] MEDS: DECADRON 4 MG TABLET PO SCH (14:09)
--- NOTE | 2020-03-03 15:30 | NUR ---
ROUND Patient resting in the bed. NO acute distress. Safety measure maintained. Call light within reached. Isolation maintained. Continue to monitor.
[2020-03-03 16:00] VITALS: BP_SYST 112
[2020-03-03 17:17] VITALS: BP_SYST 113
--- NOTE | 2020-03-03 17:45 | NUR ---
SEEN AND EXAMINED BY LEEANN PAYNE.
--- NOTE | 2020-03-03 18:52 | NUR ---
CLOSING NOTE Patient resting in the bed. No acute distress. AAO x 4. Skin warm and dry to touch. SL intact to RFA, no redness, no swelling, patent. Isolation maintained. All needs met. Safety measure maintained. Call light within reached. Bed locked in low position, side rails up, bed alarm on. Will endorse to monitor.
--- NOTE | 2020-03-03 19:25 | NUR ---
OPENING NOTES RECEIVED PATIENT IN BED AWAKE FINISHING DINNER. NO C/O PAIN. BREATHING UNLABORED ON 3L NC. BED IN LOWEST LOCKED POSITION. CALL LIGHT WITH IN EASY REACH.
[2020-03-03 20:25] VITALS: BP_SYST 117
--- NOTE | 2020-03-03 21:15 | NUR ---
V/S PATIENT IN BED NOT WEARING 02 CANNULA. PATIENT REMINDED TO KEEP 02 CANNULA AT ALL TIMES. VITAL SIGNS STABLE. DINNER TRAY REMOVED 100% CONSUMED.
--- NOTE | 2020-03-03 23:00 | NUR ---
ROUNDS PATIENT RESTING IN BED. NO DISTRESS NOTED. CALL LIGHT WITH IN EASY REACH
[2020-03-04 00:02] VITALS: BP_SYST 99
[2020-03-04] MEDS: ALBUTEROL MDI INHALATION 8 GM INH INH SCH ×5 (00:02→23:42)
--- NOTE | 2020-03-04 00:10 | NUR ---
ROUNDS BREATHING CALM ON 3L NC. 02 SAT 93%. VITAL SIGNS STABLE.
--- NOTE | 2020-03-04 02:15 | NUR ---
ROUNDS PATIENT RESTING IN BED PRONING POSITION. NO DISTRESS NOTED. CALL LIGHT WITH IN REACH.
[2020-03-04] MEDS: NORMAL SALINE 5 ML DISP.SYRIN IVF SCH ×3 (05:36→20:51)
[2020-03-04] MEDS: ACETAMINOPHEN 325 MG TABLET PO PRN (05:44)
--- NOTE | 2020-03-04 05:44 | NUR ---
PAIN MGT PATIENT MEDICATED WITH TYLENOL FOR C/O HEADACHE.
[2020-03-04 08:00] VITALS: BP_SYST 108
--- NOTE | 2020-03-04 08:00 | NUR ---
initial notes rec patient awake alert with ivl in placed. no infiltration noted. resp easy and unlabored. no sob noted. bed to the lowest position and side rails up and locked. call light within reached and knows when to call for assistance. will continue to monitor patient.
[2020-03-04] MEDS: CHOLECALCIFEROL (VITAMIN D3) 2,000 UNIT TABLET PO SCH (09:20)
[2020-03-04] MEDS: ENOXAPARIN SODIUM 40 MG/0.4 ML SYRINGE SUBCUT SCH (09:20)
--- NOTE | 2020-03-04 10:00 | NUR ---
rounds due meds were given and smiat well. resting comfortably in bed. call light within reached.
[2020-03-04] MEDS: ASCORBIC ACID 500 MG TABLET PO SCH (10:25)
[2020-03-04 12:00] VITALS: BP_SYST 125
--- NOTE | 2020-03-04 12:00 | NUR ---
rounds lunch was brought to the room and patient with good appetite. ambulates at intervals. no sob noted. call light within reached.
[2020-03-04] MEDS: DECADRON 4 MG TABLET PO SCH (13:00)
--- NOTE | 2020-03-04 14:00 | NUR ---
rounds pt taking a nap at intervals. call light withn reached. no sob noted.
[2020-03-04 16:00] VITALS: BP_SYST 136
--- NOTE | 2020-03-04 17:00 | NUR ---
rounds daughter called and updated re patient's condition. no sob noted.
--- NOTE | 2020-03-04 19:20 | NUR ---
OPENING NOTES RECEIVED PATIENT IN BED AWAKE. NO C/O PAIN. BREATHING UNLABORED ON 4LNC. BED IN LOWEST LOCKED POSITION. CALL LIGHT WITH IN REACH.
--- NOTE | 2020-03-04 19:22 | NUR ---
closing notes resting comfortably in bed. no sob noted. call light within reached. bed to the lowest position.
[2020-03-04 20:51] VITALS: BP_SYST 115
--- NOTE | 2020-03-04 21:00 | NUR ---
ROUNDS IV LINE INTACT AND PATENT. VITAL SIGNS STABLE. PATIENT REMINDED TO KEEP 02 CANNULA AT ALL TIMES. PLACED CALL LIGHT WITH IN REACH.
[2020-03-04 23:31] VITALS: BP_SYST 115
--- NOTE | 2020-03-04 23:40 | NUR ---
ROUNDS PATIENT AWAKE IN BED. NO DISTRESS NOTED. VITAL SIGNS STABLE.
--- NOTE | 2020-03-05 01:37 | NUR ---
ROUNDS PATIENT RESTING IN BED. BREATHING CALM. CALL LIGHT WITH IN REACH. 02 SAT 93%.
--- NOTE | 2020-03-05 02:30 | NUR ---
02 SAT 02 SAT SUSTAINING 87-88% ON 4L NC. 02 INCREASED TO 5L VIA NC. 02 SAT 90-91%. NO SOB NOTED.
--- NOTE | 2020-03-05 04:00 | NUR ---
ROUNDS PATIENT RESTING IN BED. NO DISTRESS NOTED. 02 SAT 92%.
[2020-03-05] MEDS: NORMAL SALINE 5 ML DISP.SYRIN IVF SCH ×3 (05:24→22:00)
[2020-03-05] MEDS: ALBUTEROL MDI INHALATION 8 GM INH INH SCH ×3 (05:24→19:59)
[2020-03-05] MEDS: ACETAMINOPHEN 325 MG TABLET PO PRN (06:38)
--- NOTE | 2020-03-05 06:40 | NUR ---
CLOSING NOTES PATIENT AWAKE IN BED NO DISTRESS NOTED. 02 SAT 91% ON 5L NC. MEDICATED WITH TYLENOL FOR C/O HEADACHE. PATIENT REFUSED BED LINENS TO BE CHANGE AT THIS TIME. PATIENT NEEDS ATTENDED. BED IN LOWEST LOCKED POSITION. CALL LIGHT WITH IN REACH.
--- NOTE | 2020-03-05 07:31 | NUR ---
Opening Note received SBAR report from head packager RN, patient resting in bed, respirations even and unlabored on 5L nasal cannula, no acute distress noted, patient reports pain is controlled, educated patient on use of call light and asked to call for assistance, patient verbalized understanding, call light in reach, educated patient on use of bed alarm for patient safety, patient verbalized understanding, patient refusing bed alarm, bed in low and locked position.
[2020-03-05 09:30] VITALS: BP_SYST 110
[2020-03-05] MEDS: ENOXAPARIN SODIUM 40 MG/0.4 ML SYRINGE SUBCUT SCH (09:30)
[2020-03-05] MEDS: CHOLECALCIFEROL (VITAMIN D3) 2,000 UNIT TABLET PO SCH (09:33)
[2020-03-05] MEDS: ASCORBIC ACID 500 MG TABLET PO SCH (09:33)
[2020-03-05 09:37] VITALS: BP_SYST 115
--- NOTE | 2020-03-05 09:40 | NUR ---
RN Rounds patient resting in bed, respirations even and unlabored on 5L nasal cannula, no acute distress noted, patient reports pain is controlled.
--- NOTE | 2020-03-05 10:45 | NUR ---
Physician Rounds Dr. Hardin at bedside examining patient.
--- NOTE | 2020-03-05 10:49 | NUR ---
Physician Rounds Rounds with Dr. Barton at nurses station, informed him that patient is currently on 5L nasal cannula, O2Sat 94%, per Dr. Barton attempt to decrease oxygen to 3L nasal cannula.
--- NOTE | 2020-03-05 12:40 | NUR ---
Ambulated to bathroom patient ambulated to bathroom, steady gait noted, patient uses bathroom independently, patient ambulated back to bed, patient resting in bed.
[2020-03-05 12:47] VITALS: BP_SYST 106
--- NOTE | 2020-03-05 13:20 | NUR ---
Oxygen attempted to decrease patient to 3L nasal cannula, patient desaturated to 90%, increased patient back up to 5L, O2Sat 93%, no acute distress noted, continued O2 therapy at 5L.
[2020-03-05] MEDS: DECADRON 4 MG TABLET PO SCH (13:41)
--- NOTE | 2020-03-05 14:55 | NUR ---
RN Rounds patient resting in bed, patients family brought in food for the patient, provided patient with food brought in by family, patient reports pain is controlled at this time, no acute distress noted.
[2020-03-05 16:00] VITALS: BP_SYST 125
--- NOTE | 2020-03-05 17:30 | NUR ---
RN Rounds patient sitting up in bed eating dinner, tolerating well, patient denies any nausea.
--- NOTE | 2020-03-05 19:30 | NUR ---
Opening Note Patient resting in bed, respirations even and unlabored on 5L Oximizer, no acute distress noted, patient reports no pain at this time, Patient ambulates steadily. Bed locked in low position, call light in reach. Safety, Fall, and isolation precautions in place. will continue to monitor.
--- NOTE | 2020-03-05 19:45 | NUR ---
Closing Note SBAR report given to receiving RN, patient resting in bed, respirations even and unlabored, no acute distress noted, patient reports pain is controlled, educated patient on use of call light and asked to call for assistance, patient verbalized understanding, call light in reach, educated patient on use of bed alarm for patient safety, patient verbalized understanding, patient refusing bed alarm, bed in low and locked position, care endorsed to night shift manager RN.
[2020-03-05 20:00] VITALS: BP_SYST 116
--- NOTE | 2020-03-05 22:00 | NUR ---
RN ROUNDS PATIENT AWAKE IN BED NO SIGNS OF DISTRESS NOTED. OFFERED LINEN CHANGE PATIENT DECLINES AT THIS TIME.
[2020-03-06] VITALS: BP_SYST 112
[2020-03-06] MEDS: ALBUTEROL MDI INHALATION 8 GM INH INH SCH ×4 (00:57→17:00)
--- NOTE | 2020-03-06 02:00 | NUR ---
RN ROUNDS PATIENT ASLEEP IN BED, NO DISCOMFORT NOTED. RESPIRATIONS EVEN AND UNLABORED ON OXYGEN 5L VIA OXIMIZER. PULSE OX 94%
--- NOTE | 2020-03-06 06:15 | NUR ---
CLOSING NOTE PATIENT ASLEEP COMFORTABLY, NO SIGNS OF PAIN OR DISCOMFORT NOTED. OXYGEN 5L VIA OXIMIZER IN PLACE, RESPRIATIONS EVEN AND UNLABORED. SAFETY, FALL, AND ISOLATION PRECAUTIONS REMAIN IN PLACE. PATIENT STABLE. WILL CONTINUE TO MONITOR UNTIL ENDORSED TO AM NURSE.
[2020-03-06] MEDS: NORMAL SALINE 5 ML DISP.SYRIN IVF SCH ×3 (06:53→22:10)
[2020-03-06 08:00] VITALS: BP_SYST 130
--- NOTE | 2020-03-06 08:00 | NUR ---
OPENING NOTES PT AWAKE, ALERT, AND ORIENTED. NONLABORED BREATHING NOTED, RECEIVING O2 VIA OXYMIZER AT 11LPM, TOLERATING WELL. SPOKE TO RESPIRATORY THERAPIST, PT'S O2 WAS 86%, RT INCREASED O2 TO 11LPM, STATED PT AT 90%. IV LINE INTACT AND PATENT, NO SIGNS OF INFILTRATION NOTED. EDUCATED PT ON INCENTIVE SPIROMETER, VERBALIZED UNDERSTANDING, DEMONSTRATED AND REACHED 1500ML. NO ACUTE DISTRESS NOTED. ALL NEEDS MET. CALL LIGHT IN REACH. FALL, ASPIRATION, AND ISOLATION PRECAUTIONS IN PLACE. CONTINUE TO MONITOR.
[2020-03-06] MEDS: ASCORBIC ACID 500 MG TABLET PO SCH (08:40)
[2020-03-06] MEDS: ENOXAPARIN SODIUM 40 MG/0.4 ML SYRINGE SUBCUT SCH (08:40)
[2020-03-06] MEDS: CHOLECALCIFEROL (VITAMIN D3) 2,000 UNIT TABLET PO SCH (08:40)
--- NOTE | 2020-03-06 08:40 | NUR ---
ROUTINE MEDS ROUTINE MEDS ADMINISTERED ORDERED PER MD, EDUCATION GIVEN, TOLERATED WELL. NO ACUTE DISTRESS NOTED. ALL NEEDS MET. CALL LIGHT IN REACH. CONTINUE TO MONITOR.
[2020-03-06] MEDS ORDERED: DOXYCYCLINE HYCLATE 100 MG CAPSULE PO SCH (09:30)
[2020-03-06] MEDS ORDERED: DOXYCYCLINE HYCLATE 100 MG CAPSULE PO ONE (09:45)
--- NOTE | 2020-03-06 10:00 | NUR ---
ROUNDS PT AWAKE AND ALERT. NO ACUTE DISTRESS NOTED. ALL NEEDS MET. CALL LIGHT IN REACH. CONTINUE TO MONITOR.
[2020-03-06 12:00] VITALS: BP_SYST 119
[2020-03-06] MEDS: DECADRON 4 MG TABLET PO SCH (12:00)
--- NOTE | 2020-03-06 12:00 | NUR ---
SPOKE TO DR. QUINTEROS AT NURSE'S STATION, AWARE PT IS ON 11LPM, RECEIVED ORDERS TO INFORM PULMO AND ID CONSULTS. WILL AWAIT FOR PULMO AND ID CONSULTS TO DO ROUNDS, WILL CALL IF NOT SEEN.
--- NOTE | 2020-03-06 12:34 | NUR ---
ROUTINE MEDS ADMINISTERED ORDERED PER MD, EDUCATION GIVEN, TOLERATED WELL. PT REQUESTED HOT WATER, GAVE HOT WATER AT BEDSIDE AND FACE MASK. ALL NEEDS MET. CALL LIGHT IN REACH. CONTINUE TO MONITOR.
--- NOTE | 2020-03-06 13:44 | NUR ---
SPOKE TO DR. FREEMAN AT NURSE'S STATION. AWARE OF PT DESAT THIS AM AND PT'S OXYMIZER AT 11LPM, NO NEW ORDERS RECEIVED.
--- NOTE | 2020-03-06 14:03 | NUR ---
ROUNDS PT AWAKE AND ALERT. NO ACUTE DISTRESS NOTED. ALL NEEDS MET. CALL LIGHT IN REACH. CONTINUE TO MONITOR.
--- NOTE | 2020-03-06 16:00 | NUR ---
ROUNDS PT AWAKE AND ALERT, ON THE PHONE. NO ACUTE DISTRESS NOTED. ALL NEEDS MET. CALL LIGHT IN REACH. CONTINUE TO MONITOR.
[2020-03-06 17:00] VITALS: BP_SYST 138
--- NOTE | 2020-03-06 17:40 | NUR ---
PLACED DINNER TRAY AT PATIENT'S BEDSIDE, SITTING UP AND EATING DINNER, TOLERATING WELL. CONTINUE TO MONITOR.
--- NOTE | 2020-03-06 18:54 | NUR ---
CLOSING NOTES PT AWAKE AND ALERT, ON THE PHONE. NONLABORED BREATHING NOTED, RECEIVING O2 VIA OXYMIZER AT 11LPM, TOLERATING WELL. IV LINE INTACT AND PATENT, NO SIGNS OF INFILTRATION NOTED. BED LOCKED AND IN LOWEST POSITION. NO ACUTE DISTRESS NOTED. ALL NEEDS MET. CALL LIGHT IN REACH. FALL, ASPIRATION, AND ISOLATION PRECAUTIONS IN PLACE. WILL ENDORSE TO NOC NURSE.
--- NOTE | 2020-03-06 19:16 | NUR ---
OPENING NOTES: PATIENT AWAKE, ALERT AND ORIENTED X 4. SITTING IN THE BED. NONLABORED AND EVEN BREATHING NOTED, RECEIVING O2 VIA OXYMIZER AT 11LPM, TOLERATING WELL. IV LINE INTACT AND PATENT, NO SIGNS OF INFILTRATION NOTED. BED LOCKED AND IN LOWEST POSITION. NO ACUTE DISTRESS NOTED. CALL LIGHT IN REACH. FALL, ASPIRATION, AND ISOLATION PRECAUTIONS IN PLACE. WILL CONTINUE TO MONITOR.
[2020-03-06 20:00] VITALS: BP_SYST 141
[2020-03-06] MEDS: DOXYCYCLINE HYCLATE 100 MG CAPSULE PO SCH (20:56)
--- NOTE | 2020-03-06 21:00 | NUR ---
MEDICATION PASS: PATIENT GIVEN SCHEDULED MED. EDUCATED PATIENT REGARDING MEDICATION INDICATION AND POTENTIAL SIDE EFFECTS. PATIENT UNABLE TO VERBALIZED UNDERSTANDING D/T LANGUAGE BARRIER. PROVIDED PATIENT WITH MEDICATION HANDOUT. WARM WATER AND WARM BLANKET PROVIDED TO PATIENT. PATIENT BREATHING UNLABORED AND EVEN ON OXYMIZER, RECEIVING 11 L OF OXYGEN. CALL LIGHT IS WITH PATIENT. SAFETY,FALL, AND ISOLATION PRECAUTIONS ARE IN PLACE. WILL CONTINUE TO MONITOR.
--- NOTE | 2020-03-06 22:20 | NUR ---
ASSUMPTION OF CARE SBAR REPORT RECEIVED FROM OTONIEL DEWITT AT BEDSIDE. AT INITIAL ASSESSMENT, PATIENT IS RESTING IN BED, STABLE, NO SIGNS OF RESPIRATORY DISTRESS. PATIENT VERBALIZES NO PAIN. PLAN OF CARE FOR THE EVENING IS COMMUNICATED WITH THE PATIENT. PATIENT DEMONSTRATES CORRECT USAGE OF CALL LIGHT AT THIS TIME. BED IS LOCKED, ALARMED, AND AT THE LOWEST LEVEL. FALL SAFETY EDUCATION PROVIDED. FALL, SAFETY, ASPIRATION, ISOLATION, AND RESPIRATORY PRECAUTIONS WILL BE TAKEN THROUGHOUT THE SHIFT.
--- NOTE | 2020-03-06 22:30 | NUR ---
PRONE EDUCATION PATIENT EDUCATED IN PATIENT'S PRIMARY LANGUAGE (MANDARIN) ON IMPORTANCE OF BEING IN PRONE POSITION MUCH POSSIBLE, PATIENT VERBALIZED BACK UNDERSTANDING. ASSISTED PATIENT TO PRONE POSITION AT THIS TIME, SHE IS TOLERATING WELL, WILL CONTINUE TO MONITOR CLOSELY.
[2020-03-07] VITALS: BP_SYST 131
--- NOTE | 2020-03-07 00:30 | NUR ---
NOTE PATIENT IS IN PRONE POSITION RESTING IN BED, STABLE, NO SIGNS OF RESPIRATORY DISTRESS. OXYGEN TITRATED DOWN TO 9L, SHE IS SATURATING 94%. WILL CONTINUE TO MONITOR CLOSELY. CALL LIGHT IS WITHIN REACH. BED IS LOCKED, ALARMED, AND AT THE LOWEST LEVEL.
--- NOTE | 2020-03-07 02:30 | NUR ---
NOTE PATIENT IS IN PRONE POSITION SLEEPING, STABLE, NO SIGNS OF RESPIRATORY DISTRESS. CALL LIGHT IS WITHIN REACH. BED IS LOCKED, ALARMED, AND AT THE LOWEST LEVEL.
--- NOTE | 2020-03-07 04:30 | NUR ---
NOTE PATIENT IS IN PRONE POSITION RESTING IN BED, STABLE, NO SIGNS OF RESPIRATORY DISTRESS. OXYGEN TITRATED DOWN TO 7L, SHE IS SATURATING 93%. WILL CONTINUE TO MONITOR CLOSELY. CALL LIGHT IS WITHIN REACH. BED IS LOCKED, ALARMED, AND AT THE LOWEST LEVEL.
[2020-03-07] MEDS: NORMAL SALINE 5 ML DISP.SYRIN IVF SCH ×3 (05:39→21:02)
--- NOTE | 2020-03-07 06:30 | NUR ---
CLOSING NOTE PATIENT WAS COOPERATIVE AND SLEPT IN PRONE POSITION THROUGHOUT THE NIGHT. PATIENT TOLERATED SLEEPING PRONE POSITION WELL, OXYGEN TITRATED DOWN TO 7L OXYMIZER AT THIS TIME WITH OXYGEN SATURATION AROUND 94%. AT THIS TIME, PATIENT IS RESTING IN BED, STABLE, NO SIGNS OF RESPIRATORY DISTRESS. CALL LIGHT IS WITHIN REACH. BED IS LOCKED, ALARMED, AND AT THE LOWEST LEVEL. FALL, SAFETY, ASPIRATION, ISOLATION, AND RESPIRATORY PRECAUTIONS HAVE BEEN TAKEN THROUGHOUT THE SHIFT. WILL CONTINUE TO MONITOR UNTIL SHIFT REPORT IS GIVEN AT BEDSIDE TO AM NURSE.
--- NOTE | 2020-03-07 07:30 | NUR ---
OPENING NOTES PT RESTING IN BED, CHEST RISE AND FALL NOTED. NONLABORED BREATHING NOTED, RECEIVING O2 VIA OXYMIZER AT 7LPM, TOLERATING WELL. NO ACUTE DISTRESS NOTED. ALL NEEDS MET. CALL LIGHT IN REACH. FALL, ASPIRATION, AND ISOLATION PRECAUTIONS IN PLACE. CONTINUE TO MONITOR.
[2020-03-07] MEDS: ALBUTEROL MDI INHALATION 8 GM INH INH SCH ×5 (07:31→23:30)
[2020-03-07 07:32] LABS: HEMATOCRIT 36.3 % (36-48); HEMOGLOBIN 12.5 g/dL (12.0-16.0); LYMPHOCYTES # (AUTO) 0.3 K/uL (1.0-5.5); LYMPHOCYTES % (AUTO) 3.2 % (20.5-51.5); MEAN CORPUSCULAR HEMOGLOBIN 31 pg (27-31); MEAN CORPUSCULAR HGB CONC 35 % (32-36); MEAN CORPUSCULAR VOLUME 90 fL (79.0-98.0); MONOCYTES # (AUTO) 0.5 K/uL (0.0-1.0); MONOCYTES % (AUTO) 5.5 % (1.7-9.3); NEUTROPHILS # (AUTO) 7.9 K/uL (1.8-7.7); NEUTROPHILS % (AUTO) 91.3 % (40.0-70.0); PLATELET COUNT (AUTO) 343 K/uL (130-430); RED BLOOD CELL COUNT(AUTO) 4.02 MIL/uL (4.2-6.2); RED CELL DISTRIBUTION WIDTH 13.3 % (9.0-15.0); WHITE BLOOD COUNT (AUTO) 8.6 K/uL (4.8-10.8)
[2020-03-07 08:00] VITALS: BP_SYST 116
[2020-03-07 08:02] LABS: ALANINE AMINOTRANSFERASE 42 U/L (12-78); ALBUMIN 2.2 g/dL (3.4-4.8); ANION GAP 9 (5-15); ASPARTATE AMINOTRANSFERASE 20 U/L (10-37); CALCIUM 8.1 mg/dL (8.4-11.0); CHLORIDE 96 mmol/L (98-107); CREATININE 0.71 mg/dL (0.55-1.30); GLUCOSE 137 mg/dL (70-99); POTASSIUM 3.3 mmol/L (3.5-5.1); SODIUM SERUM 133 mmol/L (136-145); TOTAL BILIRUBIN 0.5 mg/dL (0.0-1.0); UREA NITROGEN, BLOOD 14 mg/dL (8-21)
[2020-03-07] MEDS: CHOLECALCIFEROL (VITAMIN D3) 2,000 UNIT TABLET PO SCH (08:29)
[2020-03-07] MEDS: ENOXAPARIN SODIUM 40 MG/0.4 ML SYRINGE SUBCUT SCH (08:29)
[2020-03-07] MEDS: DOXYCYCLINE HYCLATE 100 MG CAPSULE PO SCH ×2 (08:29→20:59)
[2020-03-07] MEDS: ASCORBIC ACID 500 MG TABLET PO SCH (08:29)
--- NOTE | 2020-03-07 08:29 | NUR ---
ROUTINE MEDS ADMINISTERED ORDERED PER MD, EDUCATION GIVEN, TOLERATED WELL. PT FINISHED EATING BREAKFAST, REQUESTED HOT WATER, HOT WATER GIVEN AT BEDSIDE. CONTINUE TO MONITOR.
--- NOTE | 2020-03-07 09:14 | NUR ---
GAVE PT A BED BATH, TOLERATED WELL. CONTINUE TO MONITOR.
--- NOTE | 2020-03-07 10:09 | NUR ---
HIGH ALERT NOTE: SPOKE TO DR. QUINTEROS AT NURSE'S STATION IN PERSON REGARDING POTASSIUM, RECEIVED ORDERS, VERIFIED, AND CARRIED OUT. IDENTIFIED WITHIN THE MEDICAL ROSTER TO VERIFY PHYSICIAN AUTHENTICITY.
--- NOTE | 2020-03-07 10:59 | NUR ---
ROUNDS PT RESTING IN BED, CHEST RISE AND FALL NOTED, EASILY AWAKEN. NO ACUTE DISTRESS NOTED. ALL NEEDS MET. CALL LIGHT IN REACH. CONTINUE TO MONITOR.
[2020-03-07] MEDS ORDERED: POTASSIUM CHLORIDE 40 MEQ in NS 250 ML IV ONE (11:15)
[2020-03-07 12:00] VITALS: BP_SYST 116
[2020-03-07] MEDS: DECADRON 4 MG TABLET PO SCH (12:15)
--- NOTE | 2020-03-07 12:15 | NUR ---
ROUTINE MEDS ADMINISTERED ORDERED PER MD, EDUCATION GIVEN, TOLERATED WELL. WEANED PT TO 5LPM VIA OXYMIZER, TOLERATING WELL, O2 AT 100%. PT VERBALIZED WANTING TO GO HOME; OTONIEL MONTALVO TRANSLATED IN MANDARIN TO PATIENT REGARDING PT'S O2 AND USE OF OXYMIZER, MD ADVISED FOR PT TO STAY DUE TO USE OF OXYGEN, PT VERBALIZED UNDERSTANDING. CONTINUE TO MONITOR.
--- NOTE | 2020-03-07 15:23 | NUR ---
PT C/O VERTIGO, SPOKE TO DR. QUINTEROS, RECEIVED ORDERS, VERIFIED, AND CARRIED OUT.
[2020-03-07] MEDS ORDERED: MECLIZINE HCL 25 MG TABLET (ANITVERT) PO PRN (15:30)
[2020-03-07 16:30] VITALS: BP_SYST 135
--- NOTE | 2020-03-07 17:50 | NUR ---
ROUTINE INHALER ADMINISTERED ORDERED PER MD, EDUCATION GIVEN, TOLERATED WELL. DINNER TRAY GIVEN AT BEDSIDE. PT AT 4LPM VIA OXYMIZER, O2 AT 95% AT THIS TIME, TOLERATING WELL. CONTINUE TO MONITOR.
--- NOTE | 2020-03-07 18:45 | NUR ---
CLOSING NOTES PT RESTING IN BED, CHEST RISE AND FALL NOTED. NONLABORED BREATHING NOTED, RECEIVING O2 VIA OXYMIZER AT 4LPM, TOLERATING WELL. IV LINE INTACT AND PATENT, NO SIGNS OF INFILTRATION NOTED. NO ACUTE DISTRESS NOTED. ALL NEEDS MET. CALL LIGHT IN REACH. FALL, ASPIRATION, AND ISOLATION PRECAUTIONS IN PLACE. WILL ENDORSE TO NOC NURSE.
[2020-03-07 19:45] VITALS: BP_SYST 138
--- NOTE | 2020-03-07 19:45 | NUR ---
INITIAL NOTE AT INITIAL ASSESSMENT, PATIENT IS RESTING IN BED, STABLE, NO SIGNS OF RESPIRATORY DISTRESS. PATIENT VERBALIZES NO PAIN. PLAN OF CARE FOR THE EVENING IS COMMUNICATED WITH THE PATIENT. PATIENT DEMONSTRATES CORRECT USAGE OF CALL LIGHT AT THIS TIME. BED IS LOCKED, ALARMED, AND AT THE LOWEST LEVEL. FALL SAFETY EDUCATION PROVIDED. FALL, SAFETY, ASPIRATION, ISOLATION, AND RESPIRATORY PRECAUTIONS WILL BE TAKEN THROUGHOUT THE SHIFT.
--- NOTE | 2020-03-07 23:40 | NUR ---
NOTE PATIENT IS IN PRONE POSITION RESTING IN BED, STABLE, NO SIGNS OF RESPIRATORY DISTRESS. OXYGEN TITRATED DOWN TO 3L, SHE IS SATURATING 94%. WILL CONTINUE TO MONITOR CLOSELY. CALL LIGHT IS WITHIN REACH. BED IS LOCKED, ALARMED, AND AT THE LOWEST LEVEL.
[2020-03-08] VITALS: BP_SYST 120
[2020-03-08] MEDS: ALBUTEROL MDI INHALATION 8 GM INH INH SCH ×3 (06:00→17:08)
[2020-03-08] MEDS: NORMAL SALINE 5 ML DISP.SYRIN IVF SCH ×3 (06:48→22:00)
--- NOTE | 2020-03-08 06:53 | NUR ---
CLOSING NOTE PATIENT WAS COOPERATIVE AND SLEPT IN PRONE POSITION MAJORITY OF THE NIGHT. PATIENT TOLERATED SLEEPING PRONE POSITION WELL, OXYGEN TITRATED DOWN TO 3L OXYMIZER AT THIS TIME WITH OXYGEN SATURATION AROUND 94%. AT THIS TIME, PATIENT IS RESTING IN BED, STABLE, NO SIGNS OF RESPIRATORY DISTRESS. CALL LIGHT IS WITHIN REACH. BED IS LOCKED, ALARMED, AND AT THE LOWEST LEVEL. FALL, SAFETY, ASPIRATION, ISOLATION, AND RESPIRATORY PRECAUTIONS HAVE BEEN TAKEN THROUGHOUT THE SHIFT. WILL CONTINUE TO MONITOR UNTIL SHIFT REPORT IS GIVEN AT BEDSIDE TO AM NURSE.
[2020-03-08 08:00] VITALS: BP_SYST 142
[2020-03-08] MEDS: ASCORBIC ACID 500 MG TABLET PO SCH (08:30)
[2020-03-08] MEDS: CHOLECALCIFEROL (VITAMIN D3) 2,000 UNIT TABLET PO SCH (08:30)
[2020-03-08] MEDS: ENOXAPARIN SODIUM 40 MG/0.4 ML SYRINGE SUBCUT SCH (08:30)
[2020-03-08] MEDS: DOXYCYCLINE HYCLATE 100 MG CAPSULE PO SCH ×2 (08:30→21:00)
--- NOTE | 2020-03-08 08:53 | NUR ---
OPENING NOTES PT AWAKE, ALERT, AND ORIENTED. NONLABORED BREATHING NOTED AT 3LPM VIA OXYMIZER, TOLERATING WELL. IV LINE INTACT AND PATENT, NO SIGNS OF INFILTRATION NOTED. ROUTINE MEDS ADMINISTERED ORDERED PER MD, EDUCATION GIVEN, TOLERATED WELL. PT GIVEN WARM WATER AND BREAKFAST AT BEDSIDE. HOB ELEVATED. CONTINUE TO MONITOR. DR. FREEMAN STATED OK TO DC WITH HOME OXYGEN.
--- NOTE | 2020-03-08 10:33 | NUR ---
LEFT VOICEMAIL FOR CASE MANAGEMENT.
--- NOTE | 2020-03-08 10:40 | NUR ---
ROUNDS PT RESTING IN BED, CHEST RISE AND FALL NOTED. EASILY AWAKEN. NO ACUTE DISTRESS NOTED. ALL NEEDS MET. CALL LIGHT IN REACH. CONTINUE TO MONITOR.
--- NOTE | 2020-03-08 12:07 | NUR ---
CASE MANAGEMENT AWARE OF PT D/C AND NEED FOR HOME O2.
[2020-03-08 13:00] VITALS: BP_SYST 141
[2020-03-08] MEDS: DECADRON 4 MG TABLET PO SCH (13:00)
--- NOTE | 2020-03-08 13:00 | NUR ---
ROUTINE MEDS ADMINISTERED ORDERED PER MD, EDUCATION GIVEN, TOLERATED WELL. LUNCH TRAY GIVEN AT BEDSIDE. OTONIEL MONTALVO TRANSLATED TO PATIENT UPDATE ON DISCHARGE PLANNING, PATIENT VERBALIZED UNDERSTANDING AND STATED WANTING TO GO HOME; PT REFUSED FLU VACCINE, EDUCATION GIVEN INCLUDING REASON AND SIDE EFFECTS, PATIENT CONTINUE TO REFUSE. ALL NEEDS MET. CALL LIGHT IN REACH. CONTINUE TO MONITOR.
[2020-03-08 14:07] VITALS: BP_SYST 141
[2020-03-08] MEDS ORDERED: DOXY100C PO (14:14)
[2020-03-08] MEDS ORDERED: ZINC220T4 PO (14:17)
[2020-03-08] MEDS ORDERED: VITD2000 PO (14:18)
[2020-03-08] MEDS ORDERED: ASPI-1457 PO (14:19)
[2020-03-08] MEDS ORDERED: ASCO500T20 PO (14:19)
--- NOTE | 2020-03-08 15:41 | NUR ---
Passenger Service Supervisor: BRACELET FORM COVERER received an order to arrange oxygen at 3 liters BRACELET FORM COVERER learned on facesheet pt. is a self pay. Carlos Baxter stated pt. needs home oxygen set up and then patient will be discharged. BRACELET FORM COVERER called daughterMarcia, and explained to her the Drs. orders and patients needs prior to discharge. BRACELET FORM COVERER shared with daughter some resources for obtaining home oxygen. BRACELET FORM COVERER gave her the following phone numbers, [employer] [phone], [employer] [phone] and [employer] [phone]. Daughter will call to try to set up home oxygen. BRACELET FORM COVERER spoke to Manager Secondary supervisor production department, Luiza who feels daughter does not understand fully what patients needs are. BRACELET FORM COVERER spoke to Carlos Martin and asked anyone on the floor spoke Omani. He stated he did. BRACELET FORM COVERER explained to him there may an understanding/language barrier with patients daughter. Carlos Crawford agreed to speak to daughter re. patients needs prior to getting discharged. Carlos Crawford called BRACELET FORM COVERER back stating he spoke to daughter and feels daughter understands patient needs home oxygen prior to patien being discharged. BRACELET FORM COVERER thanked Ty for his assistance. BRACELET FORM COVERER will leave a not for Manager Secondary.
--- NOTE | 2020-03-08 16:10 | NUR ---
ROUNDS PT AWAKE AND ALERT, ON THE PHONE. NO ACUTE DISTRESS NOTED. ALL NEEDS MET. CALL LIGHT IN REACH. CONTINUE TO MONITOR.
[2020-03-08 17:00] VITALS: BP_SYST 135
--- NOTE | 2020-03-08 17:00 | NUR ---
VITAL SIGNS TAKE AND STABLE. NO ACUTE DISTRESS NOTED. ALL NEEDS MET. CALL LIGHT IN REACH. CONTINUE TO MONITOR.
--- NOTE | 2020-03-08 18:45 | NUR ---
CLOSING NOTES PT AWAKE, ALERT, AND ORIENTED. NONLABORED BREATHING NOTED AT 3LPM VIA OXYMIZER, TOLERATING WELL. EATING DINNER AT THIS TIME. IV LINE INTACT AND PATENT, NO SIGNS OF INFILTRATION NOTED. NO ACUTE DISTRESS NOTED. ALL NEEDS MET. CALL LIGHT IN REACH. FALL AND ASPIRATION AND ISOLATION PRECAUTIONS IN PLACE. WILL ENDORSE TO NOC NURSE.
[2020-03-08 19:45] VITALS: BP_SYST 125
[2020-03-09] VITALS: BP_SYST 122
[2020-03-09] MEDS: ALBUTEROL MDI INHALATION 8 GM INH INH SCH ×4 (06:00→17:45)
--- NOTE | 2020-03-09 06:10 | NUR ---
CLOSING NOTE NO CHANGES. NO FEVER AND NO PATIENT WAS COOPERATIVE AND SLEPT IN PRONE POSITION MAJORITY OF THE NIGHT. PATIENT TOLERATED SLEEPING PRONE POSITION WELL, OXYGEN STILL AT 3L OXYMIZER AT THIS TIME WITH OXYGEN SATURATION AROUND 95%. AT THIS TIME, PATIENT IS RESTING IN BED, STABLE, NO SIGNS OF RESPIRATORY DISTRESS. CALL LIGHT IS WITHIN REACH. BED IS LOCKED, ALARMED, AND AT THE LOWEST LEVEL. FALL, SAFETY, ASPIRATION, ISOLATION, AND RESPIRATORY PRECAUTIONS HAVE BEEN TAKEN THROUGHOUT THE SHIFT. WILL CONTINUE TO MONITOR UNTIL SHIFT REPORT IS GIVEN AT BEDSIDE TO AM NURSE.
[2020-03-09] MEDS: NORMAL SALINE 5 ML DISP.SYRIN IVF SCH ×3 (06:45→22:00)
[2020-03-09 08:30] VITALS: BP_SYST 138
[2020-03-09] MEDS: ASCORBIC ACID 500 MG TABLET PO SCH (08:59)
[2020-03-09] MEDS: DOXYCYCLINE HYCLATE 100 MG CAPSULE PO SCH ×2 (08:59→21:00)
[2020-03-09] MEDS: ENOXAPARIN SODIUM 40 MG/0.4 ML SYRINGE SUBCUT SCH (09:00)
[2020-03-09] MEDS: CHOLECALCIFEROL (VITAMIN D3) 2,000 UNIT TABLET PO SCH (09:00)
[2020-03-09 11:40] VITALS: BP_SYST 125
[2020-03-09] MEDS: DECADRON 4 MG TABLET PO SCH (13:33)
[2020-03-09 16:00] VITALS: BP_SYST 128
--- NOTE | 2020-03-09 16:00 | NUR ---
Oxygenation for DC plan: Resting on bed with room air Sat O2=86%. walking with room air Sat O2=82% . Walking with Oxygen 4 L/M via NC Sat O2=90%. Resting with Oxygen 4 L/M via NC Sat O2= 92%
--- NOTE | 2020-03-09 16:11 | NUR ---
Home Oxygen: s/w dtr/Simran re home oxygen needs. She stated she will pay for the rental cost. The pt does not have insurance. The pt is a visitor from [place]. I NEL for [facility]. no call back yet. Addendum: 03/09/20 at 1656 by Enrrique Sandoval RN S/W Brittany at [facility], [place], she can provide the home o2 for rental. She will be calling Simran/khurram for finance set up. >> Faxed the referral package to Brittany fax # [phone], her cell # [phone]. >> Hugo FREDERICK is to complete her note : 3 part PT and o2 sat records: pt's ambulating with and w/o oxygen.
--- NOTE | 2020-03-09 19:00 | NUR ---
Closing note: Patient is stable with Oxygen 4 L/M via NC, no sign of distress or SOB.
[2020-03-09 19:50] VITALS: BP_SYST 116
[2020-03-10] VITALS: BP_SYST 122
[2020-03-10] MEDS: ALBUTEROL MDI INHALATION 8 GM INH INH SCH ×5 (00:46→18:29)
--- NOTE | 2020-03-10 06:15 | NUR ---
CLOSING NOTE PATIENT WAS COOPERATIVE AND SLEPT IN PRONE POSITION MAJORITY OF THE NIGHT. PATIENT TOLERATED SLEEPING PRONE POSITION WELL, OXYGEN TITRATED DOWN TO 4L NASAL CANNULA AT THIS TIME WITH OXYGEN SATURATION AROUND 94%. AT THIS TIME, PATIENT IS RESTING IN BED, STABLE, NO SIGNS OF RESPIRATORY DISTRESS. CALL LIGHT IS WITHIN REACH. BED IS LOCKED, ALARMED, AND AT THE LOWEST LEVEL. FALL, SAFETY, ASPIRATION, ISOLATION, AND RESPIRATORY PRECAUTIONS HAVE BEEN TAKEN THROUGHOUT THE SHIFT. WILL CONTINUE TO MONITOR UNTIL SHIFT REPORT IS GIVEN AT BEDSIDE TO AM NURSE.
[2020-03-10] MEDS: NORMAL SALINE 5 ML DISP.SYRIN IVF SCH ×3 (06:59→21:30)
--- NOTE | 2020-03-10 07:21 | NUR ---
Nutrition Update Ran Scale 18 noted. Pt admitted for Pneumonia Diet: Regular BMI: 30.7 kg/m2 RD to follow per nutrition care standards.
[2020-03-10 07:55] VITALS: BP_SYST 127
--- NOTE | 2020-03-10 07:55 | NUR ---
INITIAL ROUNDS Received pt AAOx4, no s/s resp distress, no c/o pain or discomfort. Pt on Airborne and Droplet isolation precautions foe Covid 19+. Plt given fresh hot water per request. Pt remains on O24L via NC with SAO2 93%. Call light within reach.
[2020-03-10] MEDS: CHOLECALCIFEROL (VITAMIN D3) 2,000 UNIT TABLET PO SCH (09:41)
[2020-03-10] MEDS: DOXYCYCLINE HYCLATE 100 MG CAPSULE PO SCH ×2 (09:43→21:15)
[2020-03-10] MEDS: ASCORBIC ACID 500 MG TABLET PO SCH (09:43)
[2020-03-10] MEDS: ENOXAPARIN SODIUM 40 MG/0.4 ML SYRINGE SUBCUT SCH (09:44)
--- NOTE | 2020-03-10 13:17 | NUR ---
Nutrition F/U Admitting Diagnosis: Pneumonia Medical History Comment: Pt presents w/: Acute Hypoxic Respiratory Failure, COVID-19 Pneumonia, HTN, Possibly Bacterial superinfection per MD notes SARS-CoV-2 Ag Rapid 02/24 Negative SARS-CoV-2 PCR 02/25 Positive Subjective Information Pt is in COVID-19 Isolation room and pt visit was deferred d/t lack of PPE. Pt did not respond to RD phone call x [address] Nataliya was inside pt's room providing care during RD rounds to nursing unit. Per EMR review, pt w/ improved appetite and PO intake, on 4 L nasal cannula and is now able to ambulate w/o getting short of breath. Pt is a/w O2 arrangement for home upon discharge. Last BM 03/09 x 1. No weight changes noted. Current Diet Order/Nutrition Support: Regular diet Pertinent Medications: Decadron, Zinc, VIT C, VIT D, Zofran, Lovenox Pertinent Labs 03/07 Na 133L, K 3.3L, BG 137H, BUN 14 WNL, Cre 0.71 WNL Skin Integrity Comment: Ran scale: 18. No skin issues noted Current % PO Good (75-100% of meals) Estimated Energy Expenditure (kcals/day) 4159-7723 Kcal/day (25-30 kcal/kg Adj IBW for obesity/acute illness) Estimated Protein Required (g/day) 78gm/day (1.5 gm/kg Adj IBW for acute illness) Estimated Fluid Required (l/day) 1.3-1.6 L/day (1ml/calorie for maintenance) Problem/Etiology/Signs/Symptoms Increased nutrient needs r/t metabolic demands AEB estimated calorie and protein needs for acute illness. (*ongoing) Altered nutrition related labs r/t medication interaction AEB elevated BG and steroid. (*ongoing) Expected Outcomes/Goals Monitor appetite and PO intake w/ goal of pt meeting more than 75% of estimated nutritional needs, labs trending WNL, normal GI function, skin integrity/wt maintenance. Dietitian Recommendations *Continue regular diet as ordered. *Continue immune boosters. Follow Up Mod Risk: F/U in 3-5 days
--- NOTE | 2020-03-10 13:21 | NUR ---
Dietitian Recommendations *Continue regular diet as ordered. *Continue immune boosters. Please see Nutrition F/U note for details. ELSIE LINTON
[2020-03-10] MEDS: DECADRON 4 MG TABLET PO SCH (13:55)
--- NOTE | 2020-03-10 14:27 | NUR ---
ROUNDS Pt sitting up in bed with no s/s resp distress, no c/o pain or discomfort. Pt given fresh hot water per request. Needs met, all precautions remain in place. Call light within reach.
--- NOTE | 2020-03-10 16:07 | NUR ---
Order sent to [facility] stating pt is covid (+) and needs O2-they will apply for O2 under an existing [employer] for temporary home O2 for fee to be waived
[2020-03-10 16:35] VITALS: BP_SYST 116
--- NOTE | 2020-03-10 19:00 | NUR ---
CLOSING NOTE Pt resting quietly in bed with no s/s resp distress,no c/o pain or discomfort. Airborne and droplet isolation precautions maintained throughout shift. Needs met, call light within reach.
--- NOTE | 2020-03-10 19:30 | NUR ---
OPENING NOTES RECEIVED REPORT FROM DAY SHIFT RN. PT RESTING IN BED, ALERT & ORIENTED X4. BREATHING EVEN AND UNLABORED TO O2 VIA NC AT 4L. O2 SAT 93%. NO S/S OF RESPIRATORY DISTRESS NOTED. IV ON RIGHT FA 22G INTACT, SL. NO SIGNS OF INFILTRATION NOTED. CALL LIGHT WITHIN REACH. BED LOCKED IN LOWEST LEVEL. SAFETY AND ISOLATION PRECAUTIONS ARE IN PLACE. WILL CONTINUE TO MONITOR.
[2020-03-10 20:00] VITALS: BP_SYST 113
--- NOTE | 2020-03-10 21:15 | NUR ---
MEDICATION PASS SCHEDULED MEDICATION ADMINISTERED ORDERED. DISCUSSED MEDICATION ACTIONS AND POTENTIAL SIDE EFFECTS. PT VERBALIZED UNDERSTANDING. NO SIGNS OF RESPIRATORY DISTRESS NOTED. CHEST RISE AND FALL SYMMETRICAL. PT REMAINS ON 4L. O2 SAT 94%. CALL LIGHT WITHIN REACH. SIDE RAILS UP X2. BED LOCKED IN LOWEST LEVEL. SAFETY AND ISOLATION PRECAUTIONS MAINTAINED. WILL CONTINUE TO MONITOR.
--- NOTE | 2020-03-10 23:45 | NUR ---
RN ROUNDS PT SLEEPING. CHEST RISE AND SYMMETRICAL. BREATHING EVEN AND UNLABORED TO O2 VIA NC AT 4L. O2 SAT 94%. NO S/S OF ACUTE DISTRESS NOTED. CALL LIGHT WITHIN REACH. BED LOCKED IN LOWEST POSITION. SAFETY AND ISOLATION PRECAUTIONS MAINTAINED. WILL CONTINUE TO MONITOR.
[2020-03-11] VITALS: BP_SYST 124
[2020-03-11] MEDS: ALBUTEROL MDI INHALATION 8 GM INH INH SCH ×4 (01:25→19:35)
--- NOTE | 2020-03-11 02:30 | NUR ---
RN ROUNDS PT SLEEPING. BREATHING EVEN AND UNLABORED TO O2 VIA NC AT 2L. O2 SAT 93%-94%. NO SIGNS OF RESPIRATORY DISTRESS NOTED. PT DENIES ANY PAIN AT THIS TIME. CALL LIGHT WITHIN REACH. SIDE RAILS UP X3. BED LOCKED IN LOWEST POSITION. SAFETY AND ISOLATIONS PRECAUTIONS ARE IN PLACE. WILL CONTINUE TO MONITOR.
[2020-03-11] MEDS: NORMAL SALINE 5 ML DISP.SYRIN IVF SCH ×3 (06:00→22:00)
--- NOTE | 2020-03-11 06:49 | NUR ---
CLOSING NOTES/PT IS ON 3L PT RESTING IN BED. BREATHING EVEN AND UNLABORED TO O2 VIA NC AT 3L. O2 SAT 94%. PT TOLERATING WELL. NO S/S OF RESPIRATORY DISTRESS NOTED. IV ON RIGHT FA 22G INTACT, SL. NO SIGNS OF INFILTRATION NOTED. CALL LIGHT WITHIN REACH. BED LOCKED IN LOWEST LEVEL. SAFETY AND ISOLATION PRECAUTIONS ARE IN PLACE. ALL NEEDS ARE MET THROUGHOUT SHIFT. WILL CONTINUE TO MONITOR UNTIL ENDORSE TO DAY SHIFT RN.
[2020-03-11 08:35] VITALS: BP_SYST 127
--- NOTE | 2020-03-11 08:45 | NUR ---
am notes received pt in bed a/ox2. res even and unlabored. vitals stable . o2 3 l/nc. saturation 95%. no s/s of res distress noted.. needs attended. fall/safety precautions in place. beds locked and low position. callight within reach. encourged to use call light for help. verbalized understanding. will conitnue to monitor
[2020-03-11] MEDS: ASCORBIC ACID 500 MG TABLET PO SCH (09:10)
[2020-03-11] MEDS: CHOLECALCIFEROL (VITAMIN D3) 2,000 UNIT TABLET PO SCH (09:10)
[2020-03-11] MEDS: DOXYCYCLINE HYCLATE 100 MG CAPSULE PO SCH ×2 (09:10→20:16)
[2020-03-11] MEDS: ENOXAPARIN SODIUM 40 MG/0.4 ML SYRINGE SUBCUT SCH (09:10)
--- NOTE | 2020-03-11 10:00 | NUR ---
MEDS DUE MEDS GIVEN ORDERED.PT RESTING COMFORTABLY. NO S/S OF DISTRESS NOTED.NEEDS ATTENDED
--- NOTE | 2020-03-11 13:00 | NUR ---
ROUNDS PT stable. ambulated to bathroom with steady gait. no s/s of res distress noted.. needs attended. fall/safety precautions in place. beds locked and low position. call light within reach. encouraged to use call light for help. pt verbalized understanding. will continue to monitor
[2020-03-11 13:30] VITALS: BP_SYST 127
[2020-03-11] MEDS: DECADRON 4 MG TABLET PO SCH (14:09)
[2020-03-11 15:49] VITALS: BP_SYST 131
--- NOTE | 2020-03-11 16:29 | NUR ---
rounds pt stable not in acute distress. vitals stable . resting comfortably. will continue to monitor
--- NOTE | 2020-03-11 16:30 | NUR ---
o2 sat tried to taper down oxygen to 2 l/nc. pt started o2 saturation level down to 90%-91%. pt placed back on 3 l nc o2. saturation 94%-95% on 3 lnc. pt denies any pain or sob. no s/s of res distress noted.will conitnue tomonitor
[2020-03-11 16:53] VITALS: BP_SYST 131
--- NOTE | 2020-03-11 18:57 | NUR ---
closing notes pt stable .res even and unlabored. vitals stable . no s/s of res distress noted..needs attended. fall/safety precautions in place. beds locked and low position. call light within reach.all need met throughout shift. will endorse to night nurse
--- NOTE | 2020-03-11 19:30 | NUR ---
OPENING NOTES RECEIVED REPORT FROM DAY SHIFT RN. PT RESTING IN BED, ALERT & ORIENTED X4. BREATHING EVEN AND UNLABORED TO O2 VIA NC AT 3L. NO SIGNS OF ACUTE DISTRESS NOTED. IV ON RIGHT FA 22G INTACT, SL. CALL LIGHT WITHIN REACH. BED LOCKED IN LOWEST POSITION. SAFETY AND ISOLATION PRECAUTIONS MAINTAINED. WILL CONTINUE TO MONITOR.
[2020-03-11 20:00] VITALS: BP_SYST 119
--- NOTE | 2020-03-11 20:10 | NUR ---
MEDICATION PASS SCHEDULED MEDICATION ADMINISTERED ORDERED. DISCUSSED MEDICATION ACTIONS AND POTENTIAL SIDE EFFECTS. PT VERBALIZED UNDERSTANDING. PT STILL REMAINS ON 3L, O2 SAT 94%. PT THOM ANY PAIN AT THIS TIME. CALL LIGHT WITHIN REACH. BED LOCKED IN LOWEST LEVEL. SAFETY AND ISOLATION PRECAUTIONS MAINTAINED. WILL MONITOR.
--- NOTE | 2020-03-11 23:05 | NUR ---
RN ROUNDS/O2 TITRATED TO 2L. BREATHING EVEN AND UNLABORED TO O2 VIA NC AT 2L NOW. PT TOLERATING WELL. O2 SAT 97%. NO S/S OF RESPIRATORY DISTRESS NOTED. WILL KEEP MONITOR ON OXYGEN SATURATION. CALL LIGHT WITHIN REACH. SIDE RAILS UP X3. BED LOCKED IN LOWEST POSITION. SAFETY AND ISOLATION PRECAUTIONS ARE IN PLACE. WILL MONITOR.
[2020-03-12] VITALS: BP_SYST 143
[2020-03-12] MEDS: ALBUTEROL MDI INHALATION 8 GM INH INH SCH ×4 (01:45→19:30)
--- NOTE | 2020-03-12 01:48 | NUR ---
RN ROUNDS PT SLEEPING. CHEST RISE AND FALL SYMMETRICAL. BREATHING EVEN AND UNLABORED TO O2 VIA NC AT 2L. O2 SAT 94%. PT TOLERATING WELL. NO S/S OF ACUTE DISTRESS NOTED. CALL LIGHT WITHIN REACH. BED LOCKED IN LOWEST POSITION. SAFETY AND ISOLATION PRECAUTIONS ARE IN PLACE. WILL CONTINUE TO MONITOR.
[2020-03-12] MEDS: NORMAL SALINE 5 ML DISP.SYRIN IVF SCH ×3 (06:00→20:57)
--- NOTE | 2020-03-12 06:30 | NUR ---
IV PLACEMENT: # 22 gauge angiocath placed to LEFT FA. Use of asceptic technique. Opsite placed over site. Blood return noted. Flushed with 5 cc of normal saline. No evidence of infiltration noted. Patient tolerated WELL.
--- NOTE | 2020-03-12 07:05 | NUR ---
CLOSING NOTES PT RESTING IN BED. BREATHING EVEN AND UNLABORED TO O2 VIA NC AT 2L. O2 SAT 96%. NO SIGNS OF ACUTE DISTRESS NOTED. IV ON LEFT FA 22G INTACT, SL. CALL LIGHT WITHIN REACH. BED LOCKED IN LOWEST POSITION. SAFETY AND ISOLATION PRECAUTIONS MAINTAINED. ALL NEEDS ARE MET THROUGHOUT SHIFT. WILL CONTINUE TO MONITOR UNTIL ENDORSE TO DAY SHIFT RN.
--- NOTE | 2020-03-12 07:10 | NUR ---
rn opening note patient is awake and alert sitting up in bed. report was endorse by night nurse. patient shows no signs of any distress,breathing is equal and non labored. patient has no other needs at this time.
[2020-03-12 08:19] VITALS: BP_SYST 141
[2020-03-12] MEDS: ENOXAPARIN SODIUM 40 MG/0.4 ML SYRINGE SUBCUT SCH (08:20)
[2020-03-12] MEDS: ASCORBIC ACID 500 MG TABLET PO SCH (08:20)
[2020-03-12] MEDS: CHOLECALCIFEROL (VITAMIN D3) 2,000 UNIT TABLET PO SCH (08:20)
[2020-03-12] MEDS: DOXYCYCLINE HYCLATE 100 MG CAPSULE PO SCH ×2 (08:20→20:57)
--- NOTE | 2020-03-12 08:20 | NUR ---
medication patient scheduled medication given per order. patient tolerated well. patient educated zipper ironer light, call light is with her. patient also provided with hot water as requested. patient has no other needs at this time. patient shows no signs of any distress. patient has oxygen on nasal cannula 2 liters tolerating well.
--- NOTE | 2020-03-12 10:40 | NUR ---
RN ROUNDING PATIENT IS AWAKE AND ALERT NO SIGNS OF ANY DISTRESS, BREATHING IS EQUAL AND NON LABORED. PATENT EDUCATED FOREIGN LANGUAGE PROFESSOR LIGHT FOR ASSISTANCE. CALL LIGHT IS WITH HER. PATIENT PROVIDED WITH HOT WATER REQUESTED.PATIENT IS ON 2L NASAL CANNULA STATING AT 95%. NO OTHER NEEDS AT THIS TIME.
[2020-03-12 12:00] VITALS: BP_SYST 117
--- NOTE | 2020-03-12 12:00 | NUR ---
rn rounding patient is awake and alert sitting up in bed. provided with hot water as requested. patient has all safety precautions in place. call light is with her educated to use for assistance. no other needs at this time.
[2020-03-12] MEDS: DECADRON 4 MG TABLET PO SCH (14:00)
--- NOTE | 2020-03-12 14:00 | NUR ---
medication patients scheduled medication given per order tolerated well. patient is awake and alert sitting up in bed. provided with hot water as requested. patient educated to use call light for assistance. patient has no other needs at this time. Spoke with case management states that got form signed by for oxygen at home ruth. no other needs at this time.
--- NOTE | 2020-03-12 15:10 | NUR ---
paging Dr. Omalley spoke with patients family, the daughter states oxygen has been delivered. informed her we need a discharge order from md will call her back once obtained. patients family verified understanding.
[2020-03-12 16:00] VITALS: BP_SYST 117
--- NOTE | 2020-03-12 16:39 | NUR ---
spoke with Dr. Azevedo he states he will be coming in to evaluate the patient. spoke with patients family member made aware no discharge order yet. family verbalized understanding. no other needs at this time.
--- NOTE | 2020-03-12 18:23 | NUR ---
rn closing note patient is awake and alert siting up in bed, just got done eating dinner. patient shows no signs of any distress, breathing is equal and non labored. patient educated certified medical transcriptionist light, call light is with her. patient provided with hot water as requested. patient has no complaints at this time. patient has nasal cannula at 2 L stating at 96%. no other needs at this time. Addendum: 03/12/20 at 1827 by Kim Briggs RN dr. godinez at [facility] states does not feel comfortable discharging tonight wants to wait for .
--- NOTE | 2020-03-12 20:45 | NUR ---
MED PASS PATIENT DUE MEDICATION GIVEN. VITAL SIGNS STABLE. NO C/O PAIN.
[2020-03-12 20:52] VITALS: BP_SYST 120
--- NOTE | 2020-03-12 23:00 | NUR ---
ROUNDS PATIENT RESTING IN BED. NO DISTRESS NOTED ON ROOM AIR. CALL LIGHT WITH IN REACH.
[2020-03-13] MEDS: ALBUTEROL MDI INHALATION 8 GM INH INH SCH ×3 (01:24→13:25)
--- NOTE | 2020-03-13 01:45 | NUR ---
ROUNDS PATIENT RESTING INI BED. NO DISTRESS NOTED ON 02 2L NC.
--- NOTE | 2020-03-13 03:49 | NUR ---
ROUNDS PATIENT AWAKE IN BED. 02 SAT 95%.
[2020-03-13 03:53] VITALS: BP_SYST 141
[2020-03-13] MEDS: NORMAL SALINE 5 ML DISP.SYRIN IVF SCH ×2 (05:22→12:32)
--- NOTE | 2020-03-13 05:30 | NUR ---
ROUNDS PATIENT RESTING IN BED. VITAL SIGNS STABLE. NO C/O PAIN.
--- NOTE | 2020-03-13 06:19 | NUR ---
CLOSING NOTES NO CHANGE IN PATIENT CONDITION. PATIENT NEEDS ATTENDED.
[2020-03-13 06:55] LABS: BASOPHILS % (AUTO) 0.2 % (0.0-2.0); EOSINOPHILS % (AUTO) 0.1 % (0.0-4.0); HEMATOCRIT 37.8 % (36-48); HEMOGLOBIN 12.8 g/dL (12.0-16.0); LYMPHOCYTES # (AUTO) 0.5 K/uL (1.0-5.5); MEAN CORPUSCULAR HEMOGLOBIN 31 pg (27-31); MEAN CORPUSCULAR HGB CONC 34 % (32-36); MEAN CORPUSCULAR VOLUME 92 fL (79.0-98.0); MONOCYTES # (AUTO) 0.4 K/uL (0.0-1.0); MONOCYTES % (AUTO) 3.5 % (1.7-9.3); NEUTROPHILS # (AUTO) 10.1 K/uL (1.8-7.7); NEUTROPHILS % (AUTO) 91.2 % (40.0-70.0); PLATELET COUNT (AUTO) 339 K/uL (130-430); RED BLOOD CELL COUNT(AUTO) 4.12 MIL/uL (4.2-6.2); RED CELL DISTRIBUTION WIDTH 13.8 % (9.0-15.0); WHITE BLOOD COUNT (AUTO) 11.1 K/uL (4.8-10.8)
--- NOTE | 2020-03-13 07:20 | NUR ---
opening note Received SBAR from night RN, patient in bed, respirations even, non labored bed in low and locked position, call light within reach, bed alarm on
[2020-03-13 07:23] LABS: ALANINE AMINOTRANSFERASE 75 U/L (12-78); ALBUMIN 2.5 g/dL (3.4-4.8); ANION GAP 7 (5-15); ASPARTATE AMINOTRANSFERASE 22 U/L (10-37); CALCIUM 8.6 mg/dL (8.4-11.0); CHLORIDE 98 mmol/L (98-107); CREATININE 0.54 mg/dL (0.55-1.30); GLUCOSE 96 mg/dL (70-99); POTASSIUM 4.1 mmol/L (3.5-5.1); SODIUM SERUM 134 mmol/L (136-145); TOTAL BILIRUBIN 0.5 mg/dL (0.0-1.0); UREA NITROGEN, BLOOD 18 mg/dL (8-21)
[2020-03-13 08:00] VITALS: BP_SYST 146
--- NOTE | 2020-03-13 08:00 | NUR ---
NURSE NOTE OBTAINED VS, PATIENT IN BED, RESPIRATIONS EVEN, NON LABORED, ON 2L O2 NASAL CANULA, BED IN LOW AND LOCKED POSITION CALL LIGHT WITHIN REACH, BED ALARM ON
--- NOTE | 2020-03-13 10:00 | NUR ---
NURSE NOTE PATIENT IN BED, RESPIRATIONS EVEN, NON LABORED, 2L O2 NASAL CANULA, BED IN LOW AND LOCKED POSITION CALL LIGHT WITHIN REACH, BED ALARM ON
[2020-03-13] MEDS: CHOLECALCIFEROL (VITAMIN D3) 2,000 UNIT TABLET PO SCH (10:18)
[2020-03-13] MEDS: ASCORBIC ACID 500 MG TABLET PO SCH (10:18)
[2020-03-13] MEDS: ENOXAPARIN SODIUM 40 MG/0.4 ML SYRINGE SUBCUT SCH (10:19)
[2020-03-13 12:00] VITALS: BP_SYST 128
--- NOTE | 2020-03-13 12:00 | NUR ---
NURSE NOTE PATIENT IN BED, RESPIRATIONS EVEN, NON LABORED, BED IN LOW AND LOCKED POSITION, OBTAINED VS, PROVIDED LUNCH. PATIENT DENIES ANY PAIN OR DISCOMFORT
[2020-03-13] MEDS: DECADRON 4 MG TABLET PO SCH (12:31)
--- NOTE | 2020-03-13 12:36 | NUR ---
Pema starr/ Brittany at [phone] has been delivered to patient's home-notified RN patient has home O2.
--- NOTE | 2020-03-13 13:00 | NUR ---
NURSE NOTE PAGED DR CARRASCO FOR DISCHARGE INSTRUCTIONS
--- NOTE | 2020-03-13 13:30 | NUR ---
PAGED DR CARRASCO FOR DISCHARGE INSTRUCTIONS
--- NOTE | 2020-03-13 14:07 | NUR ---
PAGED DR CARRASCO FOR DISCHARGE INSTRUCTIONS
--- NOTE | 2020-03-13 15:30 | NUR ---
NURSE NOTE PATIENT IN BED RESPIRATIONS EVEN, NON LABORED, BED IN LOW AND LOCKED POSITION, BED ALARM ON. DENIES ANY PAIN OR DISTRESS
[2020-03-13 15:54] VITALS: BP_SYST 132
[2020-03-13 16:00] VITALS: BP_SYST 120
--- NOTE | 2020-03-13 17:20 | NUR ---
D/C Patient Patient given medication reconciliation form and D/C instructions. Exit Care provided. Patient verbalized understanding. MD discussed with patient the results and treatment provided. Ambulatory with steady gait for discharge to home. Patient in stable condition, ID band removed. IV catheter removed, intact and dressing applied, no active bleeding. All belongings sent with patient. Patient taken to parking lot via wheel chair, to daughter waiting in car with home O2
--- NOTE | 2020-03-14 13:12 | NUR ---
Discharge Follow Up Call: [employer] phoned [phone] and spoke with dtr Simran. Simran stated pt is "doing okay" and they were able to fill her prescription. Oxygen was also delivered but no follow up appointment with MD has been made. [employer] mailed [facility] discount card to [facility] [place] [address]. Simran does not have any questions or concerns on the instructions. No further SS call needed.
== END 2020-03-13 17:20 | disposition home or self-care (01) | DRG 177 ==
LOC: SED 11:36 → STU 17:50 → SMU 03-01 10:35
PROVIDERS: ADMIT Internal Medicine Hospice and Palliative Medicine; ATTEND Internal Medicine Hospice and Palliative Medicine
DX: U07.1 COVID-19 (principal); J12.89 Other viral pneumonia; J96.01 Acute respiratory failure with hypoxia; E87.6 Hypokalemia; Z20.828 Contact with and (suspected) exposure to other viral communicable diseases; I10 Essential (primary) hypertension; Z86.19 Personal history of other infectious and parasitic diseases; Z88.0 Allergy status to penicillin
CPT/HCPCS: 36415; 36600; 71045; 71275; 76376; 80048; 80053; 81000-TC; 82550-TC; 82728; 82803-TC; 83605; 83615-TC; 83880; 84484; 85025; 85379; 85384-TC; 85610-TC; 85730-TC; 86140; 86710; 86738; 86886; 86900; 86901; 87040-TC; 87086; 93005; 94640; 94760; 96365; 96367; 99285; G0378; J0456; J0696; J1650; J1956; J3480; J7050; J7060; J7613; J8540; J8597; Q9967; U0003